=== PATIENT | female | born 1980 | race Caucasian/White ===

== ENCOUNTER 2024-11-26 20:32 | Inpatient (IN) | payer BC, SELFPAY ==
[2024-11-26] VITALS (10 sets, daily range): BP systolic 119–127; BP diastolic 79–96; PULSE 85–108; RESP 16–18; TEMP 36.4–36.7; O2SAT 98–100; BMI 22.6; BMI 22.9
--- NOTE | 2024-11-26 20:47 | ED.GENADULT ---
HPI - General Adult General Chief complaint: Diabetic Related Problem Stated complaint: Out of insulin Time Seen by Provider: 11/26/24 20:35 History of Present Illness HPI narrative: This 44-year-old female has type 1 diabetes and states that she has run out of insulin over the past couple days. She knows that she should have come in sooner but she has lots of anxiety about coming to see a doctor. She states that she watched her 22-year-old son in the hospital couple years ago and since then she has lots of anxiety in this regard. She states that she is urinating excessively and does report a history of diabetic ketoacidosis. She does arrive here with normal vital signs. A glucometer test was done on arrival which reported high for its value. Related Data Home Medications ?Medication ?Instructions ?Recorded ?Confirmed insulin aspart U-100 100 unit/mL 16 unit subcut 3XD 11/26/24 11/26/24 (3 mL) subcutaneous pen insulin glargine 100 unit/mL (3 30 unit subcut BID 11/26/24 11/26/24 mL) subcutaneous pen (Lantus Solostar U-100 Insulin) Allergies Allergy/AdvReac Type Severity Reaction Status Date / Time No Known Drug Allergies Allergy Verified 11/26/24 20:38 Review of Systems Status of ROS: Reports: 10 or more systems reviewed and unremarkable except as noted in History and below Narrative: Constitutional: No fevers, no weight gain or loss. Eyes: No discharge. No vision changes. HENT: No congestion, no sore throat, no ear pain. Cardiovascular: No chest pain, no palpitations. Respiratory: No shortness of breath, no wheezes, no cough. Gastrointestinal: No abdominal pain, no vomiting, no diarrhea. Genitourinary: No hematuria. She reports polyuria. Musculoskeletal: Normal range of motion. Skin: No rashes, no pruritis. Neurological: No dizziness, weakness, sensory change, speech change. Endo/Heme/Allergies: No bruising or bleeding. No polydipsia. Pysch: no suicidality, no anxiety, no insomnia. All other systems reviewed and are negative. [facility] Medical History (Updated 11/26/24 @ 22:08 by Wolfgang Greer MD) Insulin dependent diabetes mellitus Diabetes mellitus type 1 ?E10.9 - Type 1 diabetes mellitus without complications (ICD-10) Tobacco dependence ?F17.200 - Nicotine dependence, unspecified, uncomplicated (ICD-10) Sarcoidosis ?D86.9 - Sarcoidosis, unspecified (ICD-10) Hyperlipidemia ?E78.5 - Hyperlipidemia, unspecified (ICD-10) Neuropathy ?G62.9 - Polyneuropathy, unspecified (ICD-10) RLS (restless legs syndrome) ?G25.81 - Restless legs syndrome (ICD-10) PTSD (post-traumatic stress disorder) ?F43.10 - Post-traumatic stress disorder, unspecified (ICD-10) Panic disorder ?F41.0 - Panic disorder [episodic paroxysmal anxiety] (ICD-10) Eating disorder, unspecified ?F50.9 - Eating disorder, unspecified (ICD-10) Drug dependence ?F19.20 - Other psychoactive substance dependence, uncomplicated (ICD-10) Depression ?F32.A - Depression, unspecified (ICD-10) Borderline personality disorder ?F60.3 - Borderline personality disorder (ICD-10) Anxiety ?F41.9 - Anxiety disorder, unspecified (ICD-10) Alcohol use ?F10.90 - Alcohol use, unspecified, uncomplicated (ICD-10) ADD (attention deficit disorder) ?F98.8 - Other specified behavioral and emotional disorders with onset usually occurring in childhood and adolescence (ICD-10) Surgical History (Updated 11/26/24 @ 21:20 by Tommie Farfan RN) History of bilateral breast reduction surgery ?Z98.890 - Other specified postprocedural states (ICD-10) Social History Smoking Status: Never smoker Do you use any of these nicotine containing products: None Second hand tobacco smoke exposure: No How often do you have a drink containing alcohol: never How often do you have six or more drinks on one occasion: Never AUDIT-C Alcohol total score: 0 Non-prescribed substance use: denies use service: No Exam Narrative: Exam Narrative: Constitutional: Well-developed, well-nourished, no acute distress. HEENT: Normocephalic, atraumatic. Neck: Normal range of motion. Nontender. Supple. Heart: Regular. No murmurs. Normal rate. Intact distal pulses. Lungs: Clear to auscultation. No chest discomfort. No wheezes, rhonchi, or rales. Abdomen: Normal bowel sounds. Nontender. No rebound tenderness. Genitalia: Deferred. Back: No midline tenderness. Normal range of motion. Extremities: Normal range of motion. No injury. Skin: Intact. No rash. Warm. No erythema or pallor. Neurologic: No altered sensation. No weakness. Alert and oriented. Psychiatric: No suicidality. No anxiety or depression. No insomnia. Nursing notes and vitals signs are reviewed. Const: Vital Signs, click to edit/add: Vital Signs - 24 hr 11/26/24 20:36 11/26/24 21:11 Temperature 98.0 F Pulse Rate [Right Pulse Oximeter] 85 Respiratory Rate 18 Blood Pressure [Ri ght Upper Arm] 119/79 Pulse Oximetry 99 99 Oxygen Delivery Me thod Room Air Course Vital Signs Vital signs: Initial Vital Signs Temperature 98.0 F 11/26/24 20:36 Temperature Source Temporal Artery Scan 11/26/24 20:36 Pulse Rate 85 11/26/24 20:36 Respiratory Rate 18 11/26/24 20:36 Blood Pressure 119/79 11/26/24 20:36 Blood Pressure Mean 92 11/26/24 20:36 Blood Pressure Position Sitting 11/26/24 20:36 Pulse Oximetry 99 11/26/24 20:36 Oxygen Delivery Method Room Air 11/26/24 20:36 Vital Signs Temperature 98.0 F 11/26/24 20:36 Pulse Rate 85 11/26/24 20:36 Respiratory Rate 18 11/26/24 20:36 Blood Pressure 119/79 11/26/24 20:36 Pulse Oximetry 99 11/26/24 20:36 Oxygen Delivery Method Room Air 11/26/24 20:36 Temperature 98.0 F 11/26/24 20:36 Pulse Rate 85 11/26/24 20:36 Respiratory Rate 18 11/26/24 20:36 Blood Pressure 119/79 11/26/24 20:36 Pulse Oximetry 99 11/26/24 21:11 Oxygen Delivery Method Room Air 11/26/24 20:36 Medications Administered Medications: Generic Name Dose Route Start Last Admin Trade Name Freq PRN Reason Stop Dose Admin Sodium Chloride 1,000 mls @ 1,000 mls/hr 11/26/24 22:00 11/26/24 22:03 0.9 % Sodium Chloride 1000 Ml IV 11/26/24 22:59 1,000 mls/hr .Q1H JAVED Administration Insulin Human Regular 10 unit 11/26/24 21:57 11/26/24 22:02 Insulin Regular, Human 100 Unit/Ml Vial IVP 11/26/24 21:58 10 unit ONCE ONE Administration Lorazepam 0.5 mg 11/26/24 21:46 11/26/24 21:50 Lorazepam 2 Mg/Ml Inj IV 11/26/24 21:47 0.5 mg ONCE ONE Administration Discontinued Medications Generic Name Dose Route Start Last Admin Trade Name German PRN Reason Stop Dose Admin Sodium Chloride 1,000 mls @ 1,000 mls/hr 11/26/24 21:00 11/26/24 21:54 0.9 % Sodium Chloride 1000 Ml IV 11/26/24 21:59 Infused .Q1H JAVED Infusion Insulin Human Regular 10 unit 11/26/24 20:46 11/26/24 21:08 Insulin Regular, Human 100 Unit/Ml Vial IVP 11/26/24 20:47 10 unit ONCE ONE Administration Medical Decision Making MDM Narrative Medical decision making narrative: This patient has type 1 diabetes and states that she has not taken insulin for the past several days because she has run out. She arrives with some anxiety about coming to see doctors. An IV was established where she received a L of normal saline and 10 units of insulin initially. Labs are acquired and returned with some positive findings that are notable. Her glucose returns at 719 with CO2 at 14 and an anion gap. Also her sodium returns at 121. The patient received a 2 L of normal saline here along with 10 more units of regular insulin. She continues to be rather anxious so I did also administer Ativan 0.5 mg. I spoke with the hospitalist on-call who agrees to her admission into the hospital. Lab Data Labs: Lab Results 11/26/24 11/26/24 Range/Units 21:00 21:42 WBC 11.61 H (4.50-11.00) K/uL RBC 5.20 (4.00-5.20) m/uL Hgb 16.9 H (12.0-16.0) gm/dL Hct 46.8 (33.0-51.0) % MCV 90 (80-100) fL MCH 33 (26-34) pg MCHC 36 (32-36) gm/dL RDW Coeff of Risa 11.6 (11.5-15.5) % Plt Count 383 (140-440) K/uL Neut % (Auto) 71.3 (42.0-72.0) % Lymph % (Auto) 22.5 (20-44) % [place] % (Auto) 2.9 (0.0-11.0) % Eos % (Auto) 2.8 (0.0-7.0) % Baso % (Auto) 0.2 (0.0-3.0) % Neut # (Auto) 8.30 H (1.7-7.0) K/uL Lymph # (Auto) 2.60 (0.90-2.90) K/uL [place] # (Auto) 0.30 (0.00-0.90) K/UL Eos # (Auto) 0.30 (0.00-0.50) K/uL Baso # (Auto) 0.00 (0.00-0.30) K/uL Abs Immat Gran (auto) 0.00 (0.00-0.30) K/uL Imm/Tot Granulo (auto) 0.3 % Sodium 121 L* (135-149) mmol/L Potassium 4.5 (3.6-5.1) mmol/L Chloride 84 L (96-114) mmol/L Carbon Dioxide 14 L (20-32) mmol/L Anion Gap 23 H (7-15) mEq/L BUN 15 (5-24) mg/dL Creatinine 0.7 (0.5-1.5) mg/dL Estimated Creat Clear 98.01 Estimated GFR 111 ml/min Glucose 719 H* (60-115) mg/dL Calcium 9.5 (8.4-10.6) mg/dL Urine Color Light yellow (Yellow) Urine Appearance Slightly Cloudy A (Clear) Urine pH 5.5 (5.0-8.5) Ur Specific [place] 1.015 (1.000-1.030) Urine Protein Negative (Negative) Urine Glucose (UA) 2+ A (Negative) Urine Ketones 4+ A (Negative) Urine Blood Negative (Negative) Urine Nitrite Negative (Negative) Urine Bilirubin Negative (Negative) Urine Urobilinogen 0.2 (0.2-1.0) Ur Leukocyte Esterase Trace A (Negative) Discharge Plan Discharge Clinical Impression: Acute hyponatremia, Diabetic ketoacidosis Patient Disposition: Admitted As Observation Condition: Unchanged Prescriptions: No Action insulin aspart U-100 100 unit/mL (3 mL) insulin pen 16 unit subcut 3XD insulin glargine [Lantus Solostar U-100 Insulin] 100 unit/mL (3 mL) insulin pen 30 unit subcut BID
[2024-11-26] MEDS: INSULIN REGULAR, HUMAN 100 UNIT/ML VIAL 10 UNIT IVP ×2 (21:08→22:02)
[2024-11-26] MEDS: 0.9 % SODIUM CHLORIDE 1000 ml 1,000 ML IV ×2 (21:08→22:03)
[2024-11-26 21:11] LABS: Basophils Percent Auto 0.2 % (0.0-3.0); Eosinophils Percent Auto 2.8 % (0.0-7.0); Hematocrit* 46.8 % (33.0-51.0); Hemoglobin* 16.9 gm/dL (12.0-16.0); Immature Granulocytes Pct Auto 0.3 %; Lymphocytes Percent Auto 22.5 % (20-44); Mean Corpuscular HGB Conc 36 gm/dL (32-36); Mean Corpuscular Hemoglobin 33 pg (26-34); Mean Corpuscular Volume 90 fL (80-100); Monocytes Percent Auto 2.9 % (0.0-11.0); Neutrophils Percent Auto 71.3 % (42.0-72.0); Platelet Count* 383 K/uL (140-440); RDW Coefficient of Variation % 11.6 % (11.5-15.5); White Blood Count* 11.61 K/uL (4.50-11.00)
[2024-11-26 21:18] LABS: Slide Review Reflex No
[2024-11-26 21:22] LABS: Chloride* 84 mmol/L (96-114); Potassium* 4.5 mmol/L (3.6-5.1)
[2024-11-26 21:25] LABS: Anion Gap 23 mEq/L (7-15); Blood Urea Nitrogen* 15 mg/dL (5-24); Calcium* 9.5 mg/dL (8.4-10.6); Carbon Dioxide* 14 mmol/L (20-32); Creatinine* 0.7 mg/dL (0.5-1.5); Est. Creatinine Clearance* 98.01; Estimated Glomerular Filt Rate 111 ml/min
[2024-11-26 21:48] LABS: Glucose* 719 mg/dL (60-115); Sodium* 121 mmol/L (135-149)
[2024-11-26] MEDS: LORazepam 2 MG/ML inj 0.5 MG IV (21:50)
[2024-11-26 21:52] LABS: Appearance Urine Slightly Cloudy (Clear); Bilirubin Urine Negative (Negative); Blood Urine Negative (Negative); Color Urine Light yellow (Yellow); Glucose Urine 2+ (Negative); Ketones Urine 4+ (Negative); Leukocyte Esterase Urine Trace (Negative); Nitrite Urine Negative (Negative); Protein Urine Negative (Negative); Specific Gravity Urine 1.015 (1.000-1.030); Urobilinogen Urine 0.2 (0.2-1.0); pH Urine 5.5 (5.0-8.5)
[2024-11-26 22:12] LABS: Amorphous Sediment Urine Few; RBC Urine 0-2 (0-2); Squamous Epithelial Cell Urine Few (None-Few)
[2024-11-26 22:21] LABS: ABG PCO2 41 mmHG (35-45); Base Excess ABG 1.5 mmol/L (-3.0-3.0); HCO3 ABG 25 mmol/L (21-28); Oxygen Saturation ABG 98 % (92-100); TCO2 ABG 25 mmol/l (21-30)
[2024-11-26 22:41] LABS: Glucose, Point-of-Care* 502 mg/dl (60-115)
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
[2024-11-26 23:10] LABS: Glucose, Point-of-Care* 425 mg/dl (60-115)
[2024-11-26 23:54] LABS: HCO3 VBG 20 mmol/L (21-28); Lactate* 1.5 mmol/L (0.5-1.9); PCO2 VBG 39 mmHG (40-50); PO2 VBG 32.5 mmHG (25-47); pH VBG 7.311 (7.32-7.43)
[2024-11-27 00:09] LABS: Chloride* 96 mmol/L (96-114)
[2024-11-27 00:10] LABS: Potassium* 3.6 mmol/L (3.6-5.1); Sodium* 125 mmol/L (135-149)
[2024-11-27 00:12] LABS: Blood Urea Nitrogen* 12 mg/dL (5-24); Creatinine* 0.5 mg/dL (0.5-1.5); Est. Creatinine Clearance* 137.21; Estimated Glomerular Filt Rate 120 ml/min
[2024-11-27 00:13] LABS: Anion Gap 11 mEq/L (7-15); Calcium* 8.5 mg/dL (8.4-10.6); Carbon Dioxide* 18 mmol/L (20-32); Magnesium* 1.4 mg/dL (1.5-2.6); Phosphorus* 2.8 mg/dL (2.5-4.5)
[2024-11-27 00:30] VITALS: PULSE 96
[2024-11-27 00:32] LABS: Glucose* 449 mg/dL (60-115); HCG Quantitative* < 2.39 mIU/mL
[2024-11-27] MEDS: INSULIN INF 100 UNIT/100 ML 100 UNIT/100 ML BAG 6.5 UNIT IVPB (00:43)
--- NOTE | 2024-11-27 01:24 | PC.NURSE ---
Contacted Karl for order clarification on IVF. Hospitalist ordered NS@125 and D5NS@150 in conjunction with each other. [facility] provider, Carina Mccoy, verbally ordered to run the NS@125 until patient's BG is<200 and then change IVF to D5NS@150.
[2024-11-27] MEDS: 0.9 % SODIUM CHLORIDE 1000 ml 1,000 ML 125 ML IV (01:25)
[2024-11-27 02:26] VITALS: BP 111/90; PULSE 101; RESP 16; TEMP 36.6; O2SAT 96
[2024-11-27 02:26] LABS: Sodium* 130 mmol/L (135-149)
[2024-11-27] MEDS: NICOTINE 21 MG PATCH 1 PATCH TRANSDERMA (02:43)
[2024-11-27 03:57] LABS: HCO3 VBG 21 mmol/L (21-28); Lactate* 1.7 mmol/L (0.5-1.9); PCO2 VBG 38 mmHG (40-50); PO2 VBG 48.3 mmHG (25-47); pH VBG 7.364 (7.32-7.43)
[2024-11-27 04:13] LABS: Chloride* 103 mmol/L (96-114); Potassium* 3.6 mmol/L (3.6-5.1); Sodium* 132 mmol/L (135-149)
[2024-11-27 04:16] LABS: Anion Gap 10 mEq/L (7-15); Blood Urea Nitrogen* 12 mg/dL (5-24); Calcium* 8.2 mg/dL (8.4-10.6); Carbon Dioxide* 19 mmol/L (20-32); Creatinine* 0.5 mg/dL (0.5-1.5); Est. Creatinine Clearance* 137.21; Estimated Glomerular Filt Rate 120 ml/min; Glucose* 256 mg/dL (60-115)
[2024-11-27] MEDS: 5 % DEXTROSE/0.9% SOD CHLORIDE 1,000 ML 150 ML IV (05:41)
[2024-11-27 06:54] LABS: Sodium* 132 mmol/L (135-149)
[2024-11-27 07:18] VITALS: PULSE 86
[2024-11-27 08:00] VITALS: BP 104/71; PULSE 89; RESP 18; TEMP 36.3; O2SAT 98
[2024-11-27] MEDS: SODIUM CHLORIDE 0.9 % (FLUSH) 10 ML SYRINGE 5 ML IVF (08:07)
[2024-11-27 08:12] LABS: HCO3 VBG 24 mmol/L (21-28); Lactate* 1.1 mmol/L (0.5-1.9); PCO2 VBG 43 mmHG (40-50); PO2 VBG 35.8 mmHG (25-47); pH VBG 7.346 (7.32-7.43)
[2024-11-27 08:31] LABS: Chloride* 100 mmol/L (96-114); Potassium* 4.3 mmol/L (3.6-5.1); Sodium* 128 mmol/L (135-149)
[2024-11-27 08:34] LABS: Blood Urea Nitrogen* 13 mg/dL (5-24); Calcium* 8.1 mg/dL (8.4-10.6); Carbon Dioxide* 23 mmol/L (20-32); Creatinine* 0.5 mg/dL (0.5-1.5); Est. Creatinine Clearance* 137.21; Estimated Glomerular Filt Rate 120 ml/min; Glucose* 307 mg/dL (60-115)
[2024-11-27 08:36] LABS: Anion Gap 5 mEq/L (7-15)
[2024-11-27] MEDS: INSULIN GLARGINE,HUM.REC.ANLOG 100 UNIT/ML INSULN.PEN 30 UNIT SUBCUT (09:15)
[2024-11-27] MEDS: INSULIN ASPART 100 UNIT/ML SUBCUT (09:15)
[2024-11-27 10:29] LABS: Sodium* 129 mmol/L (135-149)
--- NOTE | 2024-11-27 11:30 | PC.NURSE ---
Pt. seen by Dr. Hunt at approximately 1115. Plan was for pt. to be discharged, however pt. was unwilling to wait for discharge paperwork and chose to sign out against medical advice.
--- NOTE | 2024-11-27 11:34 | PM.DS1 ---
DS: Providers Provider Date Seen: 11/27/24 Date of admission: 11/26/24 23:42 Primary care physician: Not a Local Provider Admitting Clinician: Dina Lezama MD Consults: 11/26/24 23:42 Consult to Territory Service Representative [CONS] Urgent Comment: Reason for Consult:: Social Service Consult 11/27/24 01:10 Consult to Territory Service Representative [CONS] Routine Comment: Reason for Consult:: Social Service Consult Attending Physician on discharge: Adalgisa Hunt MD DS: Diagnosis Discharge Diagnosis (1) Diabetic ketoacidosis: Status: Acute Problem details: vs HHS. High risk in becoming acidotic Glucose 719, serum bicarb 14, urine ketones 4+, anion gap 23, ABG pH 7.40 In ED, received 2 L NS, 10 units insulin x2. -> POC glucose 502 -> 425 Potassium 4.5 EKG, magnesium, phosphorous ordered Admit to CCU, DKA protocol, NS maintenance fluids, insulin drip, serial labs (2) Acute hyponatremia: Status: Acute Problem details: In setting of recent polydipsia, hyperglycemia, poorly controlled diabetes mellitus Sodium 121 in the ED Corrected sodium for hyperglycemia is 131 Received 2 L NS in ED Recheck sodium upon arrival to floor and q.2 hours (3) Diabetes mellitus type 2 with complications, uncontrolled: Status: Acute Problem details: Per older EMR, type 2. Other records are indicating type 1 Poorly managed, noncompliant with insulin, unable to afford Usual home dose Lantus is 30 units b.i.d., aspart 16 units t.i.d. with meals plus sliding scale Last dose insulin was Saturday or Saturday client services account manager consult to assist with medication needs Will need to establish with PCP following discharge for ongoing management (4) Depression: Status: Acute Problem details: With additional diagnoses of ADD, anxiety, borderline personality disorder, panic disorder, PTSD, eating disorder, dependence, alcohol dependence Poorly managed Not currently on any medications DS: Summary Hospital Course Hospital Course: Pt presented w DKA and was treated w/ IVF, insulin drip and improved. Able to tolerate diet. Counseled pt on the need to comply w/ meds. Pt declined Mg replacement at hospital and asked for PO Mg at home. F/up w/ pcp. Time Spent with Patient Time attestation: Total time spent providing and/or coordinating discharge services: Exam Narrative: Exam Narrative: Physical exam GENERAL: Comfortable, no acute distress. HEAD AND NECK: Atraumatic, normocephalic CARDIOVASCULAR: RRR. Normal S1, S2. RESPIRATORY: Clear to auscultation B/L. Good air entry B/L. GASTROINTESTINAL: Not distended, not tender to palpation. NEUROLOGY: Alert, awake, oriented X 3. Normal speech. PSYCH: Anxious. Const: Vital Signs, click to edit/add: Vital Signs - 24 hr 11/26/24 20:36 11/26/24 21:11 11/26/24 21:31 Temperature 98.0 F Pulse Rate 108 H Pulse Rate [Pulse Oximeter] Pulse Rate [Right Pulse Oximeter] 85 Respiratory Rate 18 18 Blood Pressure 127/82 Blood Pressure [Le ft Arm] Blood Pressure [Ri ght Upper Arm] 119/79 Pulse Oximetry 99 99 [facility] 11/26/24 21:46 11/26/24 22:02 11/26/24 22:32 Temperature 98 F Pulse Rate 108 H 99 100 Pulse Rate [Pulse Oximeter] Pulse Rate [Right Pulse Oximeter] Respiratory Rate 18 18 18 Blood Pressure 123/96 H 120/81 123/80 Blood Pressure [Le ft Arm] Blood Pressure [Ri ght Upper Arm] Pulse Oximetry 100 100 [facility] 11/26/24 23:01 11/26/24 23:32 11/26/24 23:52 Temperature 97.6 F Pulse Rate 99 98 Pulse Rate [Pulse Oximeter] 96 Pulse Rate [Right Pulse Oximeter] Respiratory Rate 18 18 16 Blood Pressure 122/84 120/83 Blood Pressure [Le ft Arm] Blood Pressure [Ri ght Upper Arm] Pulse Oximetry 99 [facility] 11/26/24 23:53 11/27/24 00:30 11/27/24 02:26 Temperature 98 F 97.8 F Pulse Rate 96 Pulse Rate [Pulse Oximeter] 101 H Pulse Rate [Right Pulse Oximeter] 85 Respiratory Rate 18 16 Blood Pressure Blood Pressure [Le ft Arm] 111/90 H Blood Pressure [Ri ght Upper Arm] 119/79 Pulse Oximetry [facility] 11/27/24 07:18 11/27/24 08:00 Temperature 97.4 F L Pulse Rate 86 Pulse Rate [Pulse Oximeter] 89 Pulse Rate [Right Pulse Oximeter] Respiratory Rate 18 Blood Pressure Blood Pressure [Le ft Arm] 104/71 Blood Pressure [Ri ght Upper Arm] Pulse Oximetry 98 Oxygen Delivery Me thod Room Air DS: Data Data Completed and Pending Labs on day of discharge: Labs from last 24 hours 11/27/24 11/27/24 11/27/24 10:12 08:06 06:04 WBC RBC Hgb Hct MCV MCH MCHC RDW Coeff of Risa Plt Count Neut % (Auto) Lymph % (Auto) [place] % (Auto) Eos % (Auto) Baso % (Auto) Neut # (Auto) Lymph # (Auto) [place] # (Auto) Eos # (Auto) Baso # (Auto) Abs Immat Gran (auto) Imm/Tot Granulo (auto) ABG pH ABG pCO2 ABG pO2 ABG HCO3 ABG Total CO2 ABG O2 Saturation ABG Base Excess VBG pH 7.346 VBG pCO2 43 VBG pO2 35.8 VBG HCO3 24 Sodium 129 L 128 L 132 L Potassium 4.3 Chloride 100 Carbon Dioxide 23 Anion Gap 5 L BUN 13 Creatinine 0.5 Estimated Creat Clear 137.21 Estimated GFR 120 Glucose 307 H Lactate 1.1 Calcium 8.1 L Phosphorus Magnesium HCG, Quant Urine Color Urine Appearance Urine pH Ur Specific [place] Urine Protein Urine Glucose (UA) Urine Ketones Urine Blood Urine Nitrite Urine Bilirubin Urine Urobilinogen Ur Leukocyte Esterase Urine RBC Urine WBC Ur Squamous Epith Cells Amorphous Sediment Urine Bacteria POC Glucose 11/27/24 11/27/24 11/26/24 03:50 02:05 23:50 WBC RBC Hgb Hct MCV MCH MCHC RDW Coeff of Risa Plt Count Neut % (Auto) Lymph % (Auto) [place] % (Auto) Eos % (Auto) Baso % (Auto) Neut # (Auto) Lymph # (Auto) [place] # (Auto) Eos # (Auto) Baso # (Auto) Abs Immat Gran (auto) Imm/Tot Granulo (auto) ABG pH ABG pCO2 ABG pO2 ABG HCO3 ABG Total CO2 ABG O2 Saturation ABG Base Excess VBG pH 7.364 7.311 L VBG pCO2 38 L 39 L VBG pO2 48.3 H 32.5 VBG HCO3 21 20 L Sodium 132 L 130 L 125 L Potassium 3.6 3.6 Chloride 103 96 Carbon Dioxide 19 L 18 L Anion Gap 10 11 BUN 12 12 Creatinine 0.5 0.5 Estimated Creat Clear 137.21 137.21 Estimated GFR 120 120 Glucose 256 H 449 H* Lactate 1.7 1.5 Calcium 8.2 L 8.5 Phosphorus 2.8 Magnesium 1.4 L HCG, Quant < 2.39 Urine Color Urine Appearance Urine pH Ur Specific [place] Urine Protein Urine Glucose (UA) Urine Ketones Urine Blood Urine Nitrite Urine Bilirubin Urine Urobilinogen Ur Leukocyte Esterase Urine RBC Urine WBC Ur Squamous Epith Cells Amorphous Sediment Urine Bacteria POC Glucose 11/26/24 11/26/24 11/26/24 23:10 22:40 22:10 WBC RBC Hgb Hct MCV MCH MCHC RDW Coeff of Risa Plt Count Neut % (Auto) Lymph % (Auto) [place] % (Auto) Eos % (Auto) Baso % (Auto) Neut # (Auto) Lymph # (Auto) [place] # (Auto) Eos # (Auto) Baso # (Auto) Abs Immat Gran (auto) Imm/Tot Granulo (auto) ABG pH 7.40 ABG pCO2 41 ABG pO2 95.0 ABG HCO3 25 ABG Total CO2 25 ABG O2 Saturation 98 ABG Base Excess 1.5 VBG pH VBG pCO2 VBG pO2 VBG HCO3 Sodium Potassium Chloride Carbon Dioxide Anion Gap BUN Creatinine Estimated Creat Clear Estimated GFR Glucose Lactate Calcium Phosphorus Magnesium HCG, Quant Urine Color Urine Appearance Urine pH Ur Specific [place] Urine Protein Urine Glucose (UA) Urine Ketones Urine Blood Urine Nitrite Urine Bilirubin Urine Urobilinogen Ur Leukocyte Esterase Urine RBC Urine WBC Ur Squamous Epith Cells Amorphous Sediment Urine Bacteria POC Glucose 425 H* 502 H* 11/26/24 11/26/24 11/26/24 21:42 21:00 20:41 WBC 11.61 H RBC 5.20 Hgb 16.9 H Hct 46.8 MCV 90 MCH 33 MCHC 36 RDW Coeff of Risa 11.6 Plt Count 383 Neut % (Auto) 71.3 Lymph % (Auto) 22.5 [place] % (Auto) 2.9 Eos % (Auto) 2.8 Baso % (Auto) 0.2 Neut # (Auto) 8.30 H Lymph # (Auto) 2.60 [place] # (Auto) 0.30 Eos # (Auto) 0.30 Baso # (Auto) 0.00 Abs Immat Gran (auto) 0.00 Imm/Tot Granulo (auto) 0.3 ABG pH ABG pCO2 ABG pO2 ABG HCO3 ABG Total CO2 ABG O2 Saturation ABG Base Excess VBG pH VBG pCO2 VBG pO2 VBG HCO3 Sodium 121 L* Potassium 4.5 Chloride 84 L Carbon Dioxide 14 L Anion Gap 23 H BUN 15 Creatinine 0.7 Estimated Creat Clear 98.01 Estimated GFR 111 Glucose 719 H* Lactate Calcium 9.5 Phosphorus Magnesium HCG, Quant Urine Color Light yellow Urine Appearance Slightly Cloudy A Urine pH 5.5 Ur Specific [place] 1.015 Urine Protein Negative Urine Glucose (UA) 2+ A Urine Ketones 4+ A Urine Blood Negative Urine Nitrite Negative Urine Bilirubin Negative Urine Urobilinogen 0.2 Ur Leukocyte Esterase Trace A Urine RBC 0-2 Urine WBC 2-5 Ur Squamous Epith Cells Few Amorphous Sediment Few A Urine Bacteria None POC Glucose Pending Preliminary micro results at discharge 11/26/24 21:42 Urine Culture - Preliminary Urine,Clean Catch Culture in Progress Discharge Plan Discharge Disposition: Left Against Medical Advice Date of Admission: 11/26/24 23:42 Attending Provider on Discharge: Adalgisa Hunt Primary Care Provider: Provider,Not a Local Condition: Unchanged Discharge Medications: New magnesium oxide 400 mg (241.3 mg magnesium) tablet 400 mg PO BID 30 Days Qty: 60 0RF Continued insulin aspart U-100 100 unit/mL (3 mL) insulin pen 16 unit subcut TIDWM 30 Days Qty: 45 1RF insulin glargine [Lantus Solostar U-100 Insulin] 100 unit/mL (3 mL) insulin pen 30 unit subcut BID 30 Days Qty: 54 1RF Discharge Orders: Discharge Order (Routine); Ordered 11/27/24 Ordered By: Adalgisa Hunt AMAidan Form Signed: Yes
== END 2024-11-27 11:30 | disposition left against medical advice (07) | DRG 420 ==
LOC: ED 22:20 → MEDSURG 11-27 10:29
PROVIDERS: Admitting Provider Physician Assistant; Emergency Provider Emergency Medicine Emergency Medical Services; Visit Provider Family Medicine
DX: E11.10 Type 2 diabetes mellitus with ketoacidosis without coma (principal); Z79.4 Long term (current) use of insulin; Z72.0 Tobacco use; E87.1 Hypo-osmolality and hyponatremia; F32.A Depression, unspecified; E11.65 Type 2 diabetes mellitus with hyperglycemia; Z53.29 Procedure and treatment not carried out because of patient's decision for other reasons
CPT/HCPCS: 36415; 36600; 80048; 81001; 82803; 82947; 82962; 83605; 83735; 84100; 84295; 84702; 85025; 87040; 87086; 93005; 94761; 99284; 99285; J1815; J2060; J3590; J7030; J7042; S4990

== ENCOUNTER 2025-02-05 09:01 | Emergency (ER) | payer BC, SELFPAY ==
--- OUTSIDE RECORDS SUMMARY | 2009-02-18 17:37 | XMS_ITS | Encounter Summary ---
Author Organization [place] Address [address] [facility] [place] [address] Care Team Providers Care Incident Engineer Name Role Phone Sandeep Clancy MD Primary Care Provider [phone] Elly Araya MD Unavailable [phone] Encounter Details Date Type Department Care Team (Late st Contact Info) Description 02/18/2009 5:37 PM CDT [facility] in [facility] [address] [place] [phone] Rafat Helton MD [facility] [address] [place] [address] [address] [place] [address] Social History Tobacco Use Types Packs/Day Years Used Date Smoking Tobacco: Every Day Cigarettes Alcohol Use Standard Drinks/Week Comments Yes 0 (1 standard drink = 0.6 oz pur e alcohol) has been drinking daily Comments No Sex and Gender Information Value Date Recorded Sex Assigned at Not on file 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
--- OUTSIDE RECORDS SUMMARY | 2010-04-04 19:04 | XMS_ITS | Encounter Summary ---
Author Organization [place] Address [address] [facility] [place] [address] Care Team Providers Care River [place]ing Supervisor Name Role Phone Sandeep Clancy MD Primary Care Provider [phone] Elly Araya MD Unavailable Encounter Details Date Type Department Care Team (Late st Contact Info) Description 04/04/2010 7:04 PM CDT [facility] in 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
--- OUTSIDE RECORDS SUMMARY | 2012-06-01 19:00 | XMS_ITS | Continuity of Care Document ---
Author Organization [facility] Address [address] [address] [place] [address] Phone Care Team Providers Care Elevator Constructor Name Role Phone Monica Live MD Unavailable Unavailable Procedures Procedure Date Init Hosp[facility] 2 Advance Directives Directive Yes / No Effective Date File Name No Information Encounters Encounter Description Practice Location Reason(s) For Visit Diagnoses Date Provider Providers Copied on Encounter Init Hosp[facility] E[facility] Sever[facility], [address] [address], [place], [place], [id number], [place] tel:[phone] [facility] No Information 2 Maria T Escobedo. [address] [facility], [facility] [address], [place], [place], [id number] , [place]. tel:[phone] Family History Family Member Type Diagnosis Age At Onset No Information Payers Payer name Insurance type Covered libertarian ID Authoriza tion(s) No Information Social History Type Description Quantity Date Captured Comments Sex Female Smoking Status No Information Chief Complaint And Reason For Visit No Information Reason For Referral Reason For Referral No Information History Of Present Illness Encounter Date Complaint History Of Prese nt Illness No Information Functional Status Date Functional Assessmen t No Information Instructions Date Instruction Additional Infor mation No Information Assessments Type Assessment Date No Information Patient Care Teams Name Effective Dates (start - stop) Status Members No Information
--- OUTSIDE RECORDS SUMMARY | 2012-06-01 19:00 | XMS_ITS | Continuity of Care Document ---
Author Organization [facility] Address [address] [address] [place] [address] Phone Care Team Providers Care Backup Administrative Coordinator Name Role Phone Monica Live MD Unavailable Unavailable Procedures Procedure Date Init Hosp-da E&m Low Severity 2 Advance Directives Directive Yes / No Effective Date File Name No Information Encounters Encounter Description Practice Location Reason(s) For Visit Diagnoses Date Provider Providers Copied on Encounter Init Hosp-da E&m [facility] Sever[facility], [address] [address], [place], [place], [id number], [place] tel:[phone] [facility] No Information 2 Maria T Escobedo. [address] [facility], [facility] [address], [place], [place], [id number] , [place]. tel:[phone] Family History Family Member Type Diagnosis Age At Onset No Information Payers Payer name Insurance type Covered alliance party ID Authoriza tion(s) No Information Social [...]
--- OUTSIDE RECORDS SUMMARY | 2025-01-31 18:16 | XMS_ITS | Encounter Summary ---
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 Use subcutaneous insulin syringe to administer if ordered for subcutaneous route. 190 (Given - Provid er: Ivy Nogueira R.N.) insulin regular injection 10 Units (COMPLETED) 10 Units, intravenous, Once, On 01/31/25 at 1934, For 1 dose, Use subcutaneous insulin syringe to administer if ordered for subcutaneous route. 1937 (Given - Provid er: Ivy Nogueira R.N. - Comment: Verified [id number]) NaCl 0.9 % bolus 1,000 mL (COMPLETED) 1,000 mL, intravenous, at 1,000 mL/hr, Administer over 1 Hours, Once, On 01/31/25 at 1840, For 1 dose 190 (New Bag - Prov ider: Ivy Nogueira R.N.)193 (Stopped - Provider: Ivy Nogueira R.N.) NaCl 0.9 % bolus 1,000 mL (COMPLETED) 1,000 mL, intravenous, at 1,000 mL/hr, Administer over 1 Hours, Once, On 01/31/25 at 1840, For 1 dose 184 (Pavan Bag - Prov ider: Ivy Nogueira R.N.)190 (Stopped - Provider: Ivy Nogueira R.N.) NaCl 0.9 % bolus 1,000 mL (COMPLETED) 1,000 mL, intravenous, at 1,000 mL/hr, Administer over 1 Hours, Once, On 01/31/25 at 2011, For 1 dose 2013 (New Bag - Prov ider: Diana Bishop R.NJaden)210 (Stopped - Provider: Isra Clayton R.N.) PRN Medication Order 01/29/2025 01/30/2025 01/31/2025 sodium chloride 0.9 % injection 2-10 mL(Linked Group 1) 2-10 mL, intravenous, As needed, line care, Starting on 01/31/25 at 1839 Linked Groups Order Group 1: Place peripheral IV: No upper extremity site restrictions (COMPLETED) Upper extremity site restriction: No upper extremity site restrictions, Quantity of PIVs requested: One, STAT, Once, On 01/31/25 at 1840, For 1 occurrence And sodium chloride 0.9 % injection 2-10 mLJump to med 2-10 mL, intravenous, As needed, line care, Starting on 01/31/25 at 1839 documented in this encounter Additional Health Concerns Assessment Noted Time PHQ-9 Depression Total Score: 20 022 8:40 AM CDT documented as of this encounter Care Teams Psychiatric Therapist Relationship Specialty Start Date End Date Elsewhere, Pcp PCP - General Internal Medicine 02/06/22 documented as of this encounter
--- OUTSIDE RECORDS SUMMARY | 2025-02-05 09:05 | XMS_ITS | Encounter Summary ---
Author Organization [place] Address [address] [facility]. [address] Care Team Providers Care Wood Finisher Name Role Phone Sandeep Clancy MD Primary Care Provider [phone] Rafat Helton MD Primary Care Provider [phone] Frw, None Primary Care Provider Unavailabl e Elly Araya MD Unavailable [phone] Misael Zuleta MD Unavailable Unavailable System, Provider Not In Primary Care Provider Un available Encounter Details Date Type Department Care Team (Late st Contact Info) Description 07/18/2005 [facility] in [place] Inpatient Dept [address] [place] [address] Frw, Inpatient Provider Social History Tobacco Use Types Packs/Day Years Used Date Smoking Tobacco: Every Day Cigarettes Alcohol Use Standard Drinks/Week Comments Yes 0 (1 standard drink = 0.6 oz pur e alcohol) has been drinking daily Comments No Sex and Gender Information Value Date Recorded Sex Assigned at Not on file Legal Sex Female 4:14 AM APPLICATIONS SUPPORT LEAD Gender Identity Not on file Sexual Orientation Not on file Occupation Industry Job Start Date Job End Date homemaker Not on file Not on file Not on file documented as of this encounter Progress Notes * Elly Araya MD - 07/18/2005 9:00 PM CSTPROCEDURE/OPERATIVE REPORT DATE OF PROCEDURE: 07/19/2005 PREOPERATIVE DIAGNOSIS: Intrauterine at 38 and 3/7th weeks, in active labor. POSTOPERATIVE DIAGNOSIS: 1. Intrauterine at 38 3/7th weeks in active labor. 2. Delivery of a viable male, 6 pounds 9 ounces, Apgars of 8 and 9. PRINCIPLE PROCEDURE: NORMAL SPONTANEOUS VAGINAL DELIVERY. SURGEON: Elly Araya M.D. ANESTHESIA: Epidural and local Mepivacaine. ESTIMATED BLOOD LOSS: 275. COMPLICATIONS: None. DRAINS: None. FINDINGS: Include intact placenta with three-vessel cord. Midline episiotomy. No lacerations of the vagina, cervix or periurethral. TISSUES: Include infant placenta. HISTORY: Dana is a 25 year old, G3, P1, at 38 and 3/7ths weeks. She presented in active labor. She had artificial rupture of membranes at 5 centimeter after an epidural was placed. She then went onto to complete and pushed for less than half an hour. Throughout the entire first and second stage of labor, no complications. PROCEDURE: Infant delivered OA (occipitoanterior) over a midline episiotomy after approximately 5 cc of 1% Mepivacaine was injected. Mouth and nose were bulb suctioned. Nuchal cord x one was noted and reduced. Shoulders and body delivered easily thereafter. Infant was placed on maternal abdomen and cord was clamped and cut. A section of cord was set aside for possible blood gases and cord blood sample was obtained. Placenta then delivered with minimal traction and uterine massage. On inspection it was intact with three-vessel cord. On further inspection there was no periurethral, cervical or vaginal lacerations, no extension of the midline episiotomy. Approximately 8 cc of 1% Mepivacaine was injected and the episiotomy was repaired in the usual fashion with 2-0 and 3-0 chromic. At the end of the procedure both mother and were stable, fundus was firm and flow was minimal. Sponge, needle and instrument counts were correct prior to and after the delivery. Elly MADRIGAL/jordan cc: ICATIONS SUPPORT LEAD documented in this encounter Plan of Treatment Not on file documented as of this encounter Visit Diagnoses Not on filedocumented in this encounter Care Teams Wood Finisher Relationship Specialty Start Date End Date Sandeep Clancy MD XX NO INFO FOUND XX [place] [id number] PCP - General 08/20/07 07/01/17 Rafat Helton MD XX NO INFO FOUND XX [place] [address] PCP - General 03/25/06 08/19/07 Frw, None PCP - General 09/17/00 03/24/06 Elly Araya MD XXX [place] [address] PCP - Obstetrics/Gynecology 07/26/05 1 08/29/14 Misael Zuleta MD PCP - Obstetrics/Gynecology 09/17/0006/28 System, Provider Not In PCP - General Clinic 07/02/17 documented as of this encounter
--- OUTSIDE RECORDS SUMMARY | 2025-02-05 09:05 | XMS_ITS | Encounter Summary ---
Author Organization [place] Address [address] [facility] [place] [address] Care Team Providers Care Timber Robber Name Role Phone JakobepSandeep rico MD Primary Care Provider [phone] Rafat Helton MD Primary Care Provider [phone] Frw, None Primary Care Provider Unavailabl e Elly Araya MD Unavailable [phone] Misael Zuleta MD Unavailable Unavailable System, Provider Not In Primary Care Provider Un available Encounter Details Date Type Department Care Team (Late st Contact Info) Description 07/19/2005 [facility] in [place] [employer] [address] [place] [address] Misael Zuleta MD Social History Tobacco Use Types Packs/Day Years Used Date Smoking Tobacco: Every Day Cigarettes Alcohol Use Standard Drinks/Week Comments Yes 0 (1 standard drink = 0.6 oz pur e alcohol) has been drinking daily Comments No Sex and Gender Information Value Date Recorded Sex Assigned at Not on file Legal Sex Female 4:14 AM MANAGER CAREER Gender Identity Not on file Sexual Orientation Not on file Occupation Industry Job Start Date Job End Date homemaker Not on file Not on file Not on file documented as of this encounter Progress Notes * Misael Zuleta - 07/19/2005 7:23 AM CST Dana is a 25 year old white female, SAB1, who is admitted in active labor. She has SARAH of 07/30/05 and is 38w 3d gest. She is having contractions every 2-4 min. Cx was 2 cm on first evaluation and changed to 3 cm. She was admitted and epidural placed. She is now 5 cm. FHT are normal. BOWI. She has a cold. PAST MEDICAL HISTORY: Previous Medical History: None on file PAST SURGICAL HISTORY: Review of patient's past surgical history indicates: REMOVAL OF TONSILS,<14 Y/O 11/26/86 Comment: with adenoidectomy CREATE EARDRUM OPENING,GEN ANESTH 11/26/86 RW OTHER (ABSTRACTED) Comment: Breast reduction RW OTHER (ABSTRACTED) 2001 Comment: wisdom teeth CURRENT MEDICATIONS: Current outpatient prescriptions: ADDERALL 5 MG OR TABS one tablet TID VITAMIN OR one tablet daily ALLERGIES: No Known Allergies Family HX: Family History: Diabetes Father Stroke Maternal Grandfather Eye Maternal Grandfather Comment: Macular degeneration Cancer Maternal Grandmother Gynecology Mother Comment: endometreosis Hypertension Father Heart Brother Comment: murmur REVIEW OF SYSTEMS: Otherwise negative unless specified in HPI. NEUROLOGIC: negative EYES: negative ENT: negative GI: negative BREAST: negative : negative VALUATION CONSULTANT: CV: negative PULMONARY: as above MUSCULOSKELETAL: negative PSYCH: negative SKIN: negative Soc Hx: Social History Marital Status: Single Spouse Name: Bony Ha Years of Education: N/A Number of Children: 1 Occupational History homemaker Social History Main Topics Tobacco Use: Yes 0.5 Packs/Day Comment: pt trying to quit 12/15/04 less than 5 per day Alcohol Use: No Comment: not with Drug Use: Not on file Sexually Active: Yes Comment: Other Topics Concern BLOOD TRANSFUSIONS No CAFFEINE Yes Comment: 6 sodas q day, down to 1-2 q day with . SLEEP CONCERN No STRESS CONCERN Yes WEIGHT CONCERN No DIET No EXERCISE No SEAT BELT Yes SELF EXAMS No Social History Narrative None on file PHYSICAL EXAM: This is a well-developed, well-nourished female in no apparent distress, with epidural in place. VITALS: BP 98/70, p 84, FHT 140's Neruo: grossly intact EYES: JEFF, EOM's intact. ENT: oral cavity normal, no neck nodes, thyroid not enlarged, neck supple Lung CTA, bilat wheezing, easy respairations Heart: RRR, S1 and S2 clear, no murmur Back: no spinal or CVA tenderness ABD: gravid uterus Pelvic: Cx 5 cm, 100%, BOWI, 0 station EXT: no edema, Skin: no lesions of concern Assessment: active labor at 38 wk resp wheezes Plan: anticipate vaginal delivery use inhaler GER CAREER documented in this encounter Plan of Treatment Not on file documented as of this encounter Visit Diagnoses Not on filedocumented in this encounter Care Teams Timber Robber Relationship Specialty Start Date End Date Sandeep Clancy MD XX NO INFO FOUND XX [place] [id number] PCP - General 08/20/07 07/01/17 Rafat Helton MD XX NO INFO FOUND XX [place] [address] PCP - General 03/25/06 08/19/07 Frw, None PCP - General 09/17/00 03/24/06 El[place]ray[place] [address] PCP - Obstetrics/Gynecology 07/26/05 1 08/29/14 Misael Zuleta MD PCP - Obstetrics/Gynecology 09/17/0006/28 System, Provider Not In PCP - General Clinic 07/02/17 documented as of this encounter
--- OUTSIDE RECORDS SUMMARY | 2025-02-05 09:05 | XMS_ITS | Clinical Summary ---
Author Organization [place] Address [address] [facility] [place] [address] Care Team Providers Care Roof Promenade Tile Setter Name Role Phone System, Provider Not In Primary Care Provider Un available Allergies Active Allergy Reactions Criticality Noted Date Comments Bupropion 07/02/2017 Trifluoperazine 07/02/2017 Trazodone 07/02/2017 Medications buPROPion (WELLBUTRIN XL) 150 MG 24 hr tabletIndicati ons:Obsessive- compulsive disorders,Atte ntion deficit disorder with hyperactivity( 314.01) Take 1 tablet by mouth every morning. 30 tablet 0 0 Active GLIPIZIDE PO Unable to recall dose Active PARoxetine HCl (PAXIL PO) Take 50 mg by mouth daily Active Amphetamine-De xtroamphetamin e (ADDERALL PO) Take 30 mg by mouth 2 times daily Active albuterol (PROAIR HFA/PROVENTIL HFA/VENTOLIN HFA) 108 (90 Base) MCG/ACT inhaler Inhale 2 puffs into the lungs every 6 hours as needed for shortness of breath, wheezing or cough. 18 g 4 Active insulin glargine (LANTUS PEN) 100 UNIT/ML pen Inject 30 Units subcutaneously 2 times daily for 25 days. 15 mL 4 Active Active Problems Problem Noted Date Diagnosed Date Generalized anxiety disorder 07/11/2024 Hypercalcemia 03/10/2022 Hypoalbuminemia 03/10/2022 Hypokalemia 03/10/2022 Diabetic ketoacidosis associ ated with type 1 diabetes mellitus 01/21/2022 Trigeminal neuralgia 11/20/2021 Delusions of parasitosis 08/23/2021 Neuropathy 08/23/2021 Noncompliance with medication regimen 08/23/2021 Surgical absence of teeth 08/16/2021 Corneal ulcer 07/01/2020 Abnormal liver function test 01/28/2019 Hypomagnesemia 10/06/2018 Hyperlipidemia 09/15/2018 Mild intermittent asthma 06/17/2018 History of suicide attempt 03/17/2018 Overview (07/11/2024): Aug [address] [place]. February 2018 OD Gabapentin. Homelessness 03/17/2018 Personal history of suicidal behavior 03/17/2018 Overview (07/11/2024): Aug [address] [place]. February 2018 OD Gabapentin. Aug 2017 [place] river. February 2018 OD Gabapentin. 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 Provider to review Attention deficit hyperactivity disorder (ADHD) 03/25/2006 Overview (05/26/2015): Problem list name updated by automated process. 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 Provider to review and confirm. Immunizations Immunization Administration Dates Next Due Historical DTP/aP 03/18/1984,1982,08/09/19 82,1982 MMR (MMRII) 10/19/1983 Mantoux Tuberculin Skin Test 04/18/1983 OPV, trivalent, live 03/18/1984,1982,08/09,1982 Family History Medical History Relation Comments Heart Disease Brother 2 murmur Psychotic Disorder Brother 2 attention def icit disorder Diabetes Father Hypertension Father Psychotic Disorder Father attention def icit disorder Cerebrovascular Disease Maternal Grandfather Eye Disorder Maternal Grandfather Macular deg eneration Cancer Maternal Grandmother Gynecology Mother endometreosis Relation Status Comments Brother 1 Alive x2 Brother 2 Father Alive Maternal Grandfather Maternal Grandmother Mother Alive Social History Tobacco Use Types Packs/Day Years Used Date Smoking Tobacco: Every Day Cigarettes Alcohol Use Standard Drinks/Week Comments Yes 0 (1 standard drink = 0.6 oz pur e alcohol) has been drinking daily Adolescent Education Answer Date Record ed Getting School Help Needed Not on file 06/02 Comments No Sex and Gender Information Value Date Recorded Sex Assigned at Not on file Legal Sex Female 4:14 AM PROJECTS MANAGER Gender Identity Not on file Sexual Orientation Not on file Occupation Industry Job Start Date Job End Date homemaker Not on file Not on file Not on file Last Filed Vital Signs Vital Sign Reading Time Taken Comments Blood Pressure 128/108 07/11/2024 5:52 PM PROJECTS MANAGER Pulse 110 07/11/2024 5:37 PM PROJECTS MANAGER Temperature 35.9 C (96.6 F) 07/11/2024 4:03 PM PROJECTS MANAGER Respiratory Rate 29 07/11/2024 5:37 PM PROJECTS MANAGER Oxygen Saturation 99% 07/11/2024 5:37 PM PROJECTS MANAGER Inhaled Oxygen Concentration - - Weight 67.4 kg (148 lb 9.4 oz) 07/11/2024 4:03 P M PROJECTS MANAGER Height 170.2 cm (5' 7) 07/11/2024 4:03 PM PROJECTS MANAGER Body Mass Index 23.27 07/11/2024 4:03 PM PROJECTS MANAGER Plan of Treatment Health Maintenance Due Date Last Done Comments A1C 1982 ADVANCE CARE PLANNING 1982 ANNUAL REVIEW OF HM ORDERS 1982 ASTHMA ACTION PLAN 1982 ASTHMA CONTROL TEST 1982 DIABETIC FOOT EXAM 1982 EYE EXAM 1982 LIPID 1982 MAMMO SCREENING 1982 MICROALBUMIN 1982 HEPATITIS C SCREENING 2000 HEPATITIS A VACCINE (1 of 2 - Risk 2-dose series) 2001 HEPATITIS B VACCINE (1 of 3 - 19+ 3-dose series) 2001 PAP 08/24/2010 02/22/2010, 08/27, 08/31/2005, Additional history exists PNEUMOCOCCAL VACCINE: PEDIATRICS (0 to 5 YEARS) AND AT-RISK PATIENTS (6 to 49 YEARS) (2 of 2 - PCV) 07/04/2017 07/04/2016 YEARLY PREVENTIVE VISIT 07/09/2018 07/09/2017, 09/21 DTAP/TDAP/TD VACCINE (7 - Td or Tdap) 05/11/2021 05/11/2011, 02/07/2011, 03/18/1984, Additional history exists COVID-19 VACCINE ( season) 2024 08/06/2021, 07/16/2021 INFLUENZA VACCINE (Season Ended) 2025 05/24/2021, 08/25/2020, 09/10/2018, Additional history exists BMP 07/11/2025 07/11/2024, 10/25, 04/04/2010 ZOSTER VACCINE (1 of 2) 2032 HIV SCREENING Completed 12/28/2004 HPV VACCINE Aged Out No longer eligi ble based on patient's age to complete this topic MENINGITIS VACCINE Aged Out No longer eligible based on patient's age to complete this topic Procedures Procedure Name Priority Date/Time Associated Diagnosis Comments BASIC METABOLIC PANEL STAT 07/11/2024 4:21 PM PROJECTS MANAGER HCL PAP THIN LAYER DIAGNOSTIC Routine 02/22/2010 12:00 AM CDT LGSIL (Low Grade Squamous Intraepithelial Lesion) on Pap Smear HCL HIV 1 & 2 ANTIBODY Routine 12/28/2004 2:33 PM CDT Supervis Other Normal Preg from Last 3 Months or Most Recently Relevant to Health Maintenance Results * (ABNORMAL) Basic metabolic panel (07/11/2024 4:21 PM PROJECTS MANAGER) Sodium 130(L) 135 - 145 mmol/L 07/11/2024 5:07 PM PROJECTS MANAGER [facility] Potassium 3.5 3.4 - 5.3 mmol/L 07/11/2024 5:07 PM PROJECTS MANAGER [facility] Chloride 95(L) 98 - 107 mmol/L 07/11/2024 5:07 PM PROJECTS MANAGER [facility] Carbon Dioxide (CO2) 18(L) 22 - 29 mmol/L 07/11/2024 5:07 PM PROJECTS MANAGER [facility] Anion Gap 17(H) 7 - 15 mmol/L 07/11/2024 5:07 PM PROJECTS MANAGER [facility] Urea Nitrogen 10.5 6.0 - 20.0 mg/dL 07/11/2024 5:07 PM PROJECTS MANAGER [facility] Creatinine 0.53 0.51 - 0.95 mg/dL 07/11/2024 5:07 PM PROJECTS MANAGER [facility] GFR Estimate >90 >60 mL/min/1.7 3m2 07/11/2024 5:07 PM PROJECTS MANAGER [facility] Comment:eGFR calculated us2020 CKD-EPI equation. Calcium 9.4 8.8 - 10.4 mg/dL 07/11/2024 5:07 PM PROJECTS MANAGER [facility] Comment:Reference intervals for this test were updated on 03/10/2024 to reflect our healthy population more accurately. There may be differences in the flagging of prior results with similar values performed with this method. Those prior results can be interpreted in the context of the updated reference intervals. Glucose 502(HH) 70 - 99 mg/dL 07/11/2024 5:07 PM PROJECTS MANAGER [facility] Blood BLOOD SPECIMEN / Unknown Venipuncture / Unknown 07/11/2024 4:21 PM PROJECTS MANAGER 07/11/2024 4:26 PM PROJECTS MANAGER Rafi Rosado MD LAB - BLOOD ORDERABLES Final Result [facility] Acute Care Lab [address] [facility] (1st floor, no room number) [place] [address], [facility] * (ABNORMAL) A THIN LAYER, DIAGNOSTIC PAP (02/22/2010 12:00 AM CDT) PAP ASC-US(A) [facility] [place] Report Patient Name: DANA COSTELLO MR#: [id number] Specimen #: [id number] Collected: 02/22/2010 Received: 02/23/2010 Reported: 03/01/2010 12:44 Ordering Phy(s): HEYDI ARAYA SPECIMEN/STAIN PROCESS: Pap thin layer prep diagnostic (SurePath) Pap-Cyto x 1, Reflex HPV x 1 SOURCE: Cervical, endocervical Pap thin layer prep diagnostic (SurePath) SPECIMEN ADEQUACY: Satisfactory for evaluation. -Transformation zone component present. CYTOLOGIC INTERPRETATION: Epithelial Cell Abnormality: Squamous Cell: Atypical squamous cells-of undetermined significance (ASC-US). Organism(s): -Shift in tevin suggestive of bacterial vaginosis. RECOMMENDATIONS: Comment: Molecular testing for HPV has been ordered for this specimen. Electronically signed out by: Earle Wetzel M.D. Processed and screened at [facility] CLINICAL HISTORY: LMP: 02/09/2010 Previous abnormal pap: LSIL, 09/21/08 Previous normal pap: NIL, 08/31/05 Previous ASC-US: 12/28/04 Previous abnormal pap: h/o BRENDAN-2, Papanicolaou Test Limitations: Cervical cytology is a screening test with limited sensitivity; regular screening is critical for cancer prevention; Pap tests are primarily effective for the diagnosis/preventi on of squamous cell carcinoma, not adenocarcinomas or other cancers. TESTING LAB LOCATION: [address] [place] [address] COLLECTION SITE: Client: [facility] Location: [facility] (W) [facility] 02/22/2010 02/23/2010 1:1 4 PM CDT us Heydi Araya MD LABORATORY Final Result [facility] * HIV Screening (12/28/2004 2:33 PM CDT) HIV 1&2 Antibody Negative NEG [facility] 12/28/2004 2:33 PM CDT 12/28/2004 2:38 PM CDT us Sharmila Simpson NP LABORATORY Final Result [facility] [address] [place] [address] from Last 3 Months or Most Recently Relevant to Health Maintenance [place] Care Teams Roof Promenade Tile Setter Relationship Specialty Start Date End Date System, Provider Not In PCP - General Clinic 07/02/17
--- OUTSIDE RECORDS SUMMARY | 2025-02-05 09:05 | XMS_ITS | Encounter Summary ---
Author Organization [place] Address [address] [facility] [place] [address] Care Team Providers Care Connie Cleaner Name Role Phone Sandeep Clancy MD Primary Care Provider [phone] Rafat Helton MD Primary Care Provider [phone] Frw, None Primary Care Provider Unavailabl Elly Corral MD Unavailable [phone] Misael Zuleta MD Unavailable Unavailable System, Provider Not In Primary Care Provider Un available Reason for Visit * Reason Onset Date Comments Refill Request 06/07/2005 Adderahl 5 Encounter Details Date Type Department Care Team (Late st Contact Info) Description 06/07/2005 Refill [facility] in [facility] [address] [place] [id number] Misael Zuleta MD Refill Request (Adderahl 5) Social History Tobacco Use Types Packs/Day Years Used Date Smoking Tobacco: Every Day Cigarettes Comments: pt trying to quit 12/15/04 less than 5 per day Alcohol Use Standard Drinks/Week Comments No 0 (1 standard drink = 0.6 oz pur e alcohol) not with Comments Yes Sex and Gender Information Value Date Recorded Sex Assigned at Not on file Legal Sex Female 4:14 AM REPAIRER VENEER SHEET Gender Identity Not on file Sexual Orientation Not on file Occupation Industry Job Start Date Job End Date homemaker Not on file Not on file Not on file documented as of this encounter Miscellaneous Notes * Telephone Encounter - Leydi Perales - 06/07/2005 1:57 PM CDT She left voice message woul like to pepper picker Adderahl a little early as has wedding to go to and will be out of town until later next week.WOuld like to get it today,also asked if could be sent to pharmacy if possible so didn't have to come all the way here. [phone]. documented in this encounter Plan of Treatment Not on file documented as of this encounter Visit Diagnoses Diagnosis Adjustment disorder with mixed anxiety and depressed mood- Primary documented in this encounter Care Teams Connie Cleaner Relationship Specialty Start Date End Date Sandeep Clancy MD XX NO INFO FOUND XX [place] [address] PCP - General 08/20/07 07/01/17 Rafat Helton MD XX NO INFO FOUND XX [place]UE[place] [address] PCP - General 03/25/06 08/19/07 Frw, None PCP - General 09/17/00 03/24/06 Elly [place]ray[place] MD [place] [address] PCP - Obstetrics/Gynecology 07/26/05 1 08/29/14 Misael Zuleta MD PCP - Obstetrics/Gynecology 09/17/0006/28 System, Provider Not In PCP - General Clinic 07/02/17 documented as of this encounter
--- OUTSIDE RECORDS SUMMARY | 2025-02-05 09:05 | XMS_ITS | Clinical Summary ---
Author Organization [facility] Address [address] [place] [address] Care Team Providers Care Cemetery Manager Name Role Phone Elsewhere, Pcp Primary Care Provider Unavailabl e Source Comments Patient records contain information from all sites at [facility]. For routine questions regarding patient records, call [phone] during business hours, M-F 8:00 AM - 5:00 PM Central Time. Record requests for emergency care only can be directed to [phone] at any time.[facility] Allergies Active Allergy Reactions Criticality Noted Date Comments Bupropion Hcl GI intolerance Medium 09/11/2011 Nausea & Vomiting Hydroxyzine Other (see comments) High 09/05/2021 Dry eyes, eye pain Sertraline Headache Medium 09/11/2011 Trifluoperazine Anxiety High 05/01/2012 Severe akathisia Medications * This document contains information received from the source organization and may not represent a complete record from that organization. blood-glucose meter misc Test as directed for diabetes control. 1 each 2018 Active blood glucose ctl high,nml,low solution Glucose control solution provides an easy way to ensure accurate blood glucose testing. 1 each 2018 Active carboxymethylcel lulose (REFRESH PLUS) 0.5 % ophthalmic solution Administer 1 drop into both eyes 3 (three) times a day as needed for dry eyes. 1 each 2020 Active alcohol swabs pads, medicated Use as needed for diabetes control 1500 each 3 2020 Active acetaminophen (TYLENOL) 500 mg tablet Take 2 tablets (1,000 mg total) by mouth every 6 (six) hours as needed for pain. 90 tablet 2021 Active ibuprofen (ADVIL,MOTRIN) 600 mg tablet Take 1 tablet (600 mg total) by mouth every 6 (six) hours as needed for pain. 2021 Active sennosides-docus ate sodium (SENOKOT-S) 8.6-50 mg per tablet Take 2 tablets by mouth 2 (two) times a day as needed for constipation. 2021 Active melatonin 10 mg tablet Take 1 tablet (10 mg total) by mouth at bedtime as needed (sleep). 2021 Active gabapentin (NEURONTIN) 600 mg tabletIndication s:Anxiety Generalized Disorder Take 2 tablets (1,200 mg total) by mouth 3 (three) times a day. 30 tablet 2021 Active vit27,calcium/ir on/FA (multivitamin/mi neral-) tablet Take 1 tablet by mouth daily. 90 tablet 2021 Active folic acid 1 mg tablet Take 1 tablet (1 mg total) by mouth daily. 90 tablet 2021 Active clonazePAM (KlonoPIN) 1 mg tablet Take 1 tablet (1 mg total) by mouth 2 (two) times a day as needed for anxiety. Continue taper as outpatient back to pre-admission dose of 0.5 mg daily PRN. 60 tablet 2021 Active ondansetron ODT (ZOFRAN-ODT) 4 mg disintegrating tablet Dissolve 1 tablet (4 mg total) in the mouth every 6 (six) hours as needed for nausea or vomiting. 20 tablet 2021 Active nicotine polacrilex (NICORETTE) 4 mg gum Chew 1 each (4 mg total) as needed for smoking cessation. Chew 1 piece of gum every 1 to 2 hours as needed or as directed for nicotine withdrawal symptoms 100 each 1 2021 Active glucagon 1 mg injection Use as directed for low blood sugar. 1 each 1 2021 Active magnesium oxide (MAG-OX) 400 mg (241.3 mg magnesium) tablet Take 2 tablets (800 mg total) by mouth 2 (two) times a day before breakfast and dinner. *please take daily x 3 days or until your lab appt during the week of 03/13* 2021 Active BD Ultra-Fine Short Pen Needle 31 gauge x 5/16 needle Inject 4 Injection under the skin daily. 100 each 3 2022 Active blood sugar diagnostic strips 4 test daily. 120 test 2022 Active albuterol (ProAir HFA) 90 mcg/actuation inhaler Two inhalations every 6 hours as needed for wheeze or shortness of breath 8.5 g 3 2022 Active amphetamine-dext roamphetamine (ADDERALL XR) 30 mg 24 hr capsule Take 30 mg by mouth daily. Active insulin glargine (Basaglar KwikPen U-100 Insulin) 100 unit/mL (3 mL) injection Inject 45 Units under the skin at bedtime. Pharmacy select brand per patient insurance/preferenc e. 40.5 mL 1 2023 Active Additional Information Patient taking differently: 30 Unitssubcutaneous Daily at bedtime, Pharmacy select brand per patient insurance/preference., Reported on 11/28/2024 insulin aspart U-100 (NovoLOG FlexPen) 100 unit/mL (3 mL) pen Inject 15 Units under the skin 3 (three) times a day with meals. In addition to correction 15 mL 2024 Active glipiZIDE (GLUCOTROL XL) 10 mg 24 hr tablet Take 1 tablet (10 mg total) by mouth 2 (two) times a day before breakfast and dinner. 90 tablet 08/25 Discontinued hydrOXYzine (ATARAX) 25 mg tablet Take 1 tablet (25 mg total) by mouth 2 (two) times a day as needed for anxiety. 30 tablet 01/01 Discontinued lidocaine viscous (XYLOCAINE) 2 % mucosal solution Apply 15 mL to the mouth or throat 4 (four) times a day. 100 mL 3 01/01 Discontinued insulin aspart U-100 (NovoLOG FlexPen) 100 unit/mL (3 mL) pen Inject 15 Units under the skin 3 (three) times a day with meals. In addition to correction 01/31 Discontinued Active Problems Problem Noted Date Diagnosed Date Hypercalcemia 03/10/2022 Hypokalemia 03/10/2022 Hypoalbuminemia 03/10/2022 Diabetes Mellitus Type 1 With Ketoacidosis Witho ut Coma 01/21/2022 Alcohol Moderate Or Severe U se Disorder (Dependence) With Withdrawal Uncomplicated 11/20/2021 Trigeminal Neuralgia 11/20/2021 Delusion Parasitosis 08/23/2021 Noncompliance With Medication Regimen 08/23/2021 Neuropathy 08/23/2021 Extraction Teeth Loss Complete 08/16/2021 Ulcer Cornea Right 01/02/2021 Ulcer Cornea Left 07/01/2020 Hypomagnesemia 10/06/2018 Hyperlipidemia 09/15/2018 Asthma Mild Intermittent Tobacco User 06/17/2018 Personal History Of Nonsuicidal Self Harm 2017 Overview (05/22/2018): Overview: Aug 2017 [place]. February 2018 OD Gabapentin. Personal History Of Suicidal Behavior 03/17/2018 Overview (08/23/2021): Overview: Aug 2017 [place]. February 2018 OD Gabapentin. Aug 2017 [place] bridge [place] river. February 2018 OD Gabapentin. 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 09/18/2011 Obsessive Compulsive Disorder 09/15/2011 Restless Leg Syndrome 05/05/2010 Anxiety Generalized Disorder Resolved Problems Problem Noted Date Diagnosed Date Resolved Date Failure Renal Acute (Acute Kidney Injury) 03/10/2022 03/10/2022 Hypophosphatemia 08/24/2021 08/25/2021 Suicide Attempt Initial Encounter 04/27/2021 08/23/2021 Enterocolitis Due To Clostri dium Difficile Recurrent 03/27/2019 08/23/2021 Hematochezia 02/14/2019 02/17/2019 Poisoning By Other Antiepile ptic And Sedative Hypnotic Drugs Accidental Unintentional Initial 03/16/2018 04/29/2019 Body Dysmorphic Disorder 02/22/201811/2018 Sialoadenitis 05/07/2014 04/29/2019 Poisoning By Benzodiazepines Accidental Unintentional Initial 09/15/2011 04/29/2019 Overview (08/02/2017): Overview: Recommended taper off of klonopin in hospital 09/15/11 Eating Disorder 05/05/2010 04/29/2019 Encounters Date Type Department Care Team Description 01/31/2025 6:16 PM CDT - 01/31/2025 9:43 PM CDT Emergency [place] [address] [place] [phone] Annalee Le D.O. Diabetes Mellitus Type 1 With Ketoacidosis Without Coma (HCC) (Primary Dx); Patient's Other Noncompliance With Medication Regimen For Other Reason; Hyperglycemia; Dehydration Discharge Disposition: Home or Self Care 11/28/2024 8:19 AM CDT - 11/28/2024 10:50 AM CDT [facility] Emergency[facility]Urgent Care Department [address] [place] [phone] Saad Palomo M.D., M.B.A. Other Chest Pain (Primary Dx) Discharge Disposition: Home or Self Care 11/26/2024 2:14 PM CDT - 11/26/2024 3:00 PM CDT [facility] Emergency/Urgent Care Department [address] [place] [phone] Discharge Disposition: Left Against Medical Advice or Discontinued Care 11/19/2024 Nurse Triage Department of Family Medicine in [place], [place] [address] [place] [phone] Che Waller, RJadenN. Hyperglycemia from Last 3 Months Immunizations Immunization Administration Dates Next Due DTP 03/18/1984, 3,1982,1981 Influenza Split 06/26/2017,05/26/2016,05/27/2011 Influenza, Injectable, Quadrivalent 07/03/2017,1 Influenza, Unspecified 07/04/2016,06/17/2015 MMR 10/19/1983 PPSV23 07/04/2016 Polio, Unspecified 03/18/1984, 3,1982,1981 SARS-COV-2 (COVID-19) - PFIZ ER (Discontinued)(12 years or older) 08/06/2021,07/16/2021 Tdap 05/11/2011,02/07/2011 influenza trivalent high dos e (HD)(PF) 06/26/2017,05/26/2016,05/27/2011 influenza vaccine quad (FLUZONE/FLUARIX) (6 months and older)(PF) 05/24/2021,08/25/2020,09/10/2018,2016,07/04/2016 Family History Medical History Relation Name Comments Depression Father Depression Mother Amblyopia Neg Hx Blindness Neg Hx Cancer Neg Hx Cataracts Neg Hx Diabetes Neg Hx Glaucoma Neg Hx Hypertension Neg Hx Macular degeneration Neg Hx Retinal degeneration Neg Hx Retinal detachment Neg Hx Strabismus Neg Hx Stroke Neg Hx Thyroid disease Neg Hx Vision loss Neg Hx Relation Name Status Comments Father Mother Social History Tobacco Use Types Packs/Day Years Used Date Smoking Tobacco: Every Day Cigarettes 1 27.4 Started: 09/03/1997 Smokeless Tobacco: Never Tobacco Cessation:Ready to Q uit: Not Asked; Counseling Given: Not Answered Alcohol Use Standard Drinks/Week Comments Yes 0 [...] often do you attend chur ch or bahai services? Never 08/14/2021 Do you belong to any clubs o r organizations such as lutheran groups, unions, fraternal or athletic groups, or [...] Answer Date Recorded PHQ-2 Score 6 01/04/2022 [facility] Answer Date Recorded [...] place to sleep or slept in a nursing home (including now)? Yes 08/14/2021 Depression Answer Date Recor ded PHQ-9 Total Score (max 27) 20 01/04 Nutrition Answer Date Recorded On average, [...] Sex Assigned at Female 08/14/2021 9:10 AM PIPELINE WELDER Legal Sex Female 3:04 AM PIPELINE WELDER Gender Identity Female 08/14/2021 9:10 AM PIPELINE WELDER Sexual Orientation Straight 08/14/2021 9: 10 AM PIPELINE WELDER Last Filed Vital Signs Vital Sign Reading [...] Mass Index 21.65 01/31/2025 6:20 PM CDT Plan of Treatment Health Maintenance Due Date Last Done Comments Hepatitis C Screening 1982 Mammogram 1982 Office Visit for Blood Pressure Check / Re-check 1982 Hepatitis B Vaccines (1 of 3 - 19+ 3-dose series) 2001 Pneumococcal vaccine (0-49 years) (2 of 2 - PCV) 07/04/2017 07/04/2016 Diabetic Office Visit with Foot Exam 08/30/2017 08/30/2016 Urine Albumin 09/15/2019 09/15/2018, 06/19/2016 DTaP,Tdap,and Td Vaccines (7 - Td or Tdap) 05/11/2021 05/11/2011, 02/07/2011, 03/18/1984, Additional history exists Dilated Eye Exam 05/30/2022 05/30/2021 Cervical/Vaginal Cancer Screening 07/09/2022 07/09/2017, 02/22/2010, 06/09/2009 (Performed elsewhere) Diabetes Education 02/02/2023 02/02/2022, 08/30/2016 Lipid (Cholesterol) Screening 03/10/2023 03/10/2022, 07/16/2021, 09/15/2018, Additional history exists COVID-19 Vaccine (2023- season) 2024 08/06/2021, 07/16/2021 Influenza Vaccine (#1) 2024 , 08/25/2020, 09/10/2018, Additional history exists Hemoglobin A1C 07/14/2024 04/13/2024, 03/3 08/2023, 06/07/2023, Additional history exists Depression Screening (Annual PHQ-2) 08/26/2024 Creatinine Level (Kidney Function Test) 01/31/2026 01/31/2025, 01/31/2025, 11/28/2024, Additional history exists IPV Vaccines Completed 03/18/1984, 02/0 03/1983, 1982, Additional history exists Glucose Test for Med Monitoring Discontinued 01/31/2025, 01/31/2025, 01/31/2025, Additional history exists HPV Vaccines Aged Out No longer eligi ble based on patient's age to complete this topic Procedures Procedure Name Priority Date/Time Associated Diagnosis Comments BASIC METABOLIC PANEL, S/P Timed 01/31/2025 8:10 PM CDT GLUCOSE POCT, B Routine 01/31/2025 7:31 PM CDT VBG (VENOUS BLOOD GAS), POCT, B STAT 01/31/2025 6:30 PM CDT BASIC METABOLIC PANEL, S/P STAT 01/31/2025 6:30 PM CDT CBC WITH DIFFERENTIAL, B STAT 01/31/2025 6:30 PM CDT GLUCOSE POCT, B Routine 01/31/2025 6:18 PM CDT GLUCOSE POCT, B Routine 11/28/2024 10:39 AM CDT DX CHEST PORTABLE 1 VIEW RAD - Semiurgent (Fast; most ED patients; some inpatients) 11/28/2024 10:09 AM CDT TROPONIN T, BASELINE, 5TH GEN, P STAT 11/28/2024 8:31 AM CDT BASIC METABOLIC PANEL, S/P STAT 11/28/2024 8:31 AM CDT CBC WITH DIFFERENTIAL, B STAT 11/28/2024 8:31 AM CDT ECG STAT 11/28/2024 8:25 AM CDT GLUCOSE POCT, B Routine 11/26/2024 2:20 PM CDT HEMOGLOBIN A1C, B STAT 11/24/2023 9:2 5 PM CDT LIPID PANEL, S Routine 03/10/2022 3:52 AM CDT ALBUMIN, RANDOM, U Routine 09/15/2018 10 :15 AM PIPELINE WELDER Diabetes Mellitus Type 2 (HCC) EXT THINPREP W/HPV CO-TEST SCREEN Routine 07/09/2017 from Last 3 Months or Most Recently Relevant to Health Maintenance Results * (ABNORMAL) Basic Metabolic Panel (01/31/2025 8:10 PM CDT) Only the most recent of3 resultswithin the time period is included. Potassium, P 3.7 3.6 - 5.2 mmol/L [...] 8:10 PM CDT 01/31/2025 8:12 PM CDT Antony Harrell M.D. LAB BLOOD ADD-ON Final Resul t Performing Organization Address [facility]/ZIP Co de Phone Number [facility] [address] [place] [address], [facility] NPRG [address] [address] * (ABNORMAL) Glucose, POCT (01/31/2025 7:31 PM CDT) Only the most recent of4 resultswithin the time period is included. Glucose, POCT, B 373(H) 70 - 140 mg/dL 01/31/2025 7:31 PM CDT NPRG Blood 01/31/2025 7:31 PM CDT 01/31/2025 7:38 PM CDT us [facility] LAB POCT ORDERABLES-MANUAL Final Result Performing Organization Address [facility] Co de Phone Number [facility] [address] [place] [address], [address] [address] * (ABNORMAL) Blood Gas, Venous, POCT, Blood [...] PM CDT us Annalee Le D.O. LAB POCT ORDERABLES - DEVICE Fin al Result [facility] [address] [place] [address], [facility] NPRG [facility] [address] [place] [address] * (ABNORMAL) CBC with Differential, Blood (01/31/2025 6:30 PM CDT) Only the most recent of2 resultswithin the time period is included. Hemoglobin 16.6(H) 11.6 - 15.0 g/dL 01/31/2025 [...] Le D.O. LAB BLOOD ADD-ON Final Result [facility] [address] [place] [address], [facility] NPRG [facility] [address] [place] [address] * DX Chest Portable 1 View (11/28/2024 10:09 AM CDT) Anatomical Region Laterality Modality Chest, Thoracic RST LOS, Tho racic ARZ LOS, Thoracic FLA LOS N/A Digital Radiography Impressions 11/28/2024 12:00 PM CDT No acute abnormality. Narrative 11/28/2024 12:00 PM CDT EXAM: DX CHEST PORTABLE 1 VIEW COMPARISON: Chest radiograph from 03/09/2022 FINDINGS: The lungs and costophrenic sulci are clear. No pneumothorax. The cardiomediastinal contours are within normal limits. No acute osseous abnormality. Procedure Note Cristofer Morin M.D. - 11/28/2024 EXAM: DX CHEST PORTABLE 1 VIEW COMPARISON: Chest radiograph from 03/09/2022 FINDINGS: The lungs and costophrenic sulci are clear. No pneumothorax. Thecardiomediastinal contours are within normal limits. No acute osseousabnormality. IMPRESSION: No acute abnormality. Saad Palomo M.D., M.B.A. IMG DIAGNOSTIC [facility] G[facility] PROCEDURES Final Result * Troponin T, Baseline with 2 Hour/6 Hour Reflex Biomarker Panel (11/28/2024 8:31 AM CDT) Troponin T, Baseline, 5th gen <6 <=10 ng/L 11/28/2024 8:55 AM CDT NPRG Blood (Blood, Venous) 11/28/2024 8:31 AM CDT 11/28/2024 8:34 AM CDT us Saad Palomo M.D., M.B.A. LAB BLOOD TROPONIN Final Result [facility] [address] [place] [address], [facility] NPRG [facility] [address] [place] [address] * ECG 12 Lead (11/28/2024 8:25 AM CDT) Ventricular Rate ECG/Min 96 BPM MUSE DE Interval 178 ms MUSE QRSD Interval 92 ms MUSE QT Interval 392 ms MUSE QTC Interval 495 ms MUSE P [place] 74 degrees MUSE R [place] 66 degrees MUSE T Wave [place] 67 degrees MUSE 11/28/2024 8:25 AM CDT 11/29/2024 4:04 PM CDT Impressions MUSE - 11/28/2024 8:32 AM CDT Normal sinus rhythm Cannot rule out Anteroseptal infarct Prolonged QT When compared with ECG of 26-May-2024 22:29, QT has lengthened Reviewed by NIDIA Hernández Narrative Procedure Note Ramon Monsivais M.D. - 11/29/2024 IMPRESSION: Normal sinus rhythm Cannot rule out Anteroseptal infarct Prolonged QT When compared with ECG of 26-May-2024 22:29, QT has lengthened Reviewed by NIDIA Hernández us Saad Palomo M.D., M.B.A. ECG ORDERABLES Ed ited Result - Final MUSE NA * (ABNORMAL) Hemoglobin A1c (11/24/2023 9:25 PM CDT) Hemoglobin A1c, B 9.9(H) 4.2 - 5.6 % 11/24/2023 9:55 PM CDT NPRG Comment: Hemoglobin A1c values greater than or equal to 6.5 percent are diagnostic for diabetes mellitus. Diagnosis should be confirmed by repeat testing. In diabetic patients, HbA1c goals should be discussed with healthcare provider. Blood (Blood, Venous) 11/24/2023 9:25 PM CDT 11/24/2023 9:39 PM CDT Katya Maurice M.D., M.B.A. LAB BLOOD ADD-ON Final Result [facility] [address] [place] [address], [place] NPRG [facility] [address] [place] [address] * (ABNORMAL) Lipid Panel (03/10/2022 3:52 AM CDT) Triglycerides 172(H) mg/dL 03/10/2022 12:23 PM CDT DTL Comment: ----REFERENCE VALUE---- Normal: <150 mg/dL Borderline High: 150-199 mg/dL High: 200-499 mg/dL Very High: > or =500 mg/dL Cholesterol, Total 132 mg/dL 2021 12:23 PM CDT DTL Comment: ----REFERENCE VALUE---- Desirable: < 200 mg/dL Borderline High: 200 - 239 mg/dL High: > or = 240 mg/dL Cholesterol, LDL, Calculated 78 mg/dL 03/10/2022 12:23 PM CDT DTL Comment: ----REFERENCE VALUE---- Desirable: <100 mg/dL Above Desirable: 100-129 mg/dL Borderline High: 130-159 mg/dL High: 160-189 mg/dL Very High: >=190 mg/dL ----ADDITIONAL INFORMATION---- LDL cholesterol calculated using the Beck/NIH equation. Cholesterol, HDL, S 24(L) >=50 mg/dL 03/10/2022 12:23 PM CDT DTL Cholesterol, Non-HDL, Calculated 108 mg/dL 03/10/2022 12:23 PM CDT DTL Comment: ----REFERENCE VALUE---- Desirable: <130 mg/dL Above Desirable: 130-159 mg/dL Borderline High: 160-189 mg/dL High: 190-219 mg/dL Very High: > or =220 mg/dL Fasting (8 HR or more) Unknown 03/10/2022 11:52 AM CDT DTL Blood (Blood, Venous) 03/10/2022 3:52 AM CDT 03/10/2022 11:52 AM CDT us Kingsley Cartagena, Ch.B. LAB BLOOD ADD-ON Final R esult Performing Organization Address City/[facility]/ZIP Co de Phone Number [facility] [address] [place] [address], [facility] [place] [address] * (ABNORMAL) Microalbumin, Random, Urine (09/15/2018 10:15 AM PIPELINE WELDER) Microalbumin 127.2 mg/L 09/15/2018 10:54 AM PIPELINE WELDER [facility] Creatinine 199 mg/dL 09/15/2018 10:54 AM PIPELINE WELDER [facility] Albumin/Creatinin e Ratio 64(H) <25 mg/g 09/15/2018 10:54 AM PIPELINE WELDER [facility] Urine (Urine, Voided) 09/15/2018 10:15 AM PIPELINE WELDER 09/15/2018 10:16 AM PIPELINE WELDER us Luann Milton APRN, C.N.P., D.N.P. LAB URINE O RDERABLES Final Result Performing Organization Address [facility]/ZIP Co de Phone Number [facility] [address] [address], [facility] * EXT ThinPrep w/HPV Co-Test Screen (07/09/2017) EXT ThinPrep w/HPV Co-Test Screen Normal - See Scanned Report for Details Normal - See Scanned Report for Details, HIMS - Report Received and Scanned Comment:See Care Everywhere for results: Thin Prep Vial (Cervix/Endocervi x) 07/09/2017 Emelia Alicia Crandallcharla Bermudez - 07/09/2017 Performed at [facility], [address] [place] [id number] CLIA number [id number] Specimen Collected: 07/09/17 14:31 Last Resulted: 07/09/17 14:32 Received From: [employer] Result Received: 08/17/19 09:37 us Historical Provider LAB PAP PATHDX ORDERABLES Fi nal Result from Last 3 Months or Most Recently Relevant to Health Maintenance Insurance [facility] Advance Directives For more information, please contact: [phone] * Full Code (Latest Code Status on File) Date Activated Date Inactivated Comments 03/09/2022 11:26 AM 03/11/2022 3:41 PM Question Answer Comments Full Code: Discussed * Full Code Date Activated Date Inactivated Comments 03/09/2022 10:39 AM 03/09/2022 11:26 AM Question Answer Comments Full Code: Not Discussed Due to: Patient not available * Full Code Date Activated Date Inactivated Comments 02/02/2022 12:18 AM 02/04/2022 1:55 PM Question Answer Comments Full Code: Not Discussed Due to: Patient not available * Full Code Date Activated Date Inactivated Comments 01/22/2022 10:27 AM 01/24/2022 4:06 PM Question Answer Comments Full Code: Discussed * Full Code Date Activated Date Inactivated Comments 12/27/2021 7:38 PM 01/01/2022 3:31 PM Question Answer Comments Full Code: Not Discussed Due to: Not medically appropriate Care Teams Cemetery Manager Relationship Specialty Start Date End Date Elsewhere, Pcp PCP - General Internal Medicine 02/06/22
--- OUTSIDE RECORDS SUMMARY | 2025-02-05 09:05 | XMS_ITS | Clinical Summary ---
Author Organization [employer] [facility] Address [address] [place] [id number] Care Team Providers Care Bag Liner Name Role Phone Pcp, No Primary Care Provider Unavailabl e Allergies Active Allergy Reactions Criticality Noted Date Comments Bupropion Hcl *Unknown 08/22/2012 arjun did not list reaction to this medication Hydroxyzine Other - Describe In Comment Field High 09/05/2021 Dry eyes, eye pain Trifluoperazine Agitation 05/01/2012 Severe akisthesia Trazodone Headache Low 09/14/2011 Bupropion Nausea And Vomiting 09/11/2011 Sertraline Headache 09/11/2011 Medications * This document contains information received from the source organization and may not represent a complete record from that organization. Insulin Raiford, Disposable, (KIM PEN NEEDLE) 32 gauge x 5/32 Use as directed with insulins. 100 Each 8 2:01 PM CDT 03/10/20 18 Active dextrose 40% oral gel (GLUTOSE) 40 %Indications:DM (diabetes mellitus), type 2 with neurological complications (HC) Take 1-2 Tubes by mouth every 15 minutes if needed for Blood Gluc < Specify (For Blood Glucose management per Hypoglycemia Protocol). 0 04/16/20 18 Active albuterol HFA 90 mcg/actuation inhalerIndications :Sarcoidosis Inhale 1-2 Puffs by mouth every 6 hours if needed (shortness of breath). 18 g 05/04/20 18 Active Insulin Raiford, Disposable, 31 gauge x 16Indications:D M (diabetes mellitus), type 2 with neurological complications (HC) For administering insulin at home. 1 box 05/04/20 18 Active melatonin 10 mg tabIndications:PTS D (post-traumatic stress disorder) Take 10 mg by mouth at bedtime. 30 Tab 05/05/20 18 Active gabapentin (NEURONTIN) 300 mg capsuleIndications :DM (diabetes mellitus), type 2 with neurological complications (HC) Take 4 Capsules (1,200 mg) by mouth 3 times daily. 270 capsule. 09/25/19 22 Active clonazePAM (KLONOPIN WAFER) 0.5 mg disintegrating tablet Take 0.5 mg by mouth. 09/21/19 22 Active nicotine (NICORETTE) 4 mg gumIndications:Cig arette nicotine dependence without complication Chew 1 Each (4 mg) every hour while awake as needed for Nicotine Craving. 160 Each 2 09/25/19 22 Active zolpidem (AMBIEN) 5 mg tablet Take 5 mg by mouth. Active ondansetron (ZOFRAN ODT) 4 mg disintegrating tablet 01/26/20 22 Active Glucagon Emergency Kit, human, 1 mg injection 03/11/20 22 Active carboxymethylcellu lose 0.5% 0.5 % drop ophthalmic drops Place 1 Drop into the eye(s). 08/07/20 21 Active Blood-Glucose Meter Test as directed for diabetes control. 08/07/20 21 Active Contour Next Test Strips strip 06/09/20 22 Active blood sugar diagnostic strip As directed. 07/05/20 20 Active alcohol swabs Use as needed for diabetes control 08/07/20 Active blood glucose ctl high,nml,low soln Glucose control solution provides an easy way to ensure accurate blood glucose testing. 08/07/20 21 Active acetaminophen (TYLENOL EXTRA STRGTH) 500 mg tablet Take 1,000 mg by mouth every 6 hours if needed. 12/28/19 22 Active ibuprofen (ADVIL; MOTRIN) 600 mg tablet Take 600 mg by mouth every 6 hours if needed. 01/02/20 22 Active NovoLOG Flexpen U-100 Insulin 100 unit/mL (3 mL) pen Take 12-16 units with meals plus 2 units for every 50 mg/dL >150 mg/dL 06/07/20 23 Active magnesium oxide (MAG-OX 400) 400 mg tablet Take 800 mg by mouth. 03/11/20 22 Active PNV cmb#95-ferrous fumarate-FA 28 mg iron- 800 mcg tab Take 1 Tablet by mouth once daily. 01/05/20 22 Active folic acid 1 mg tablet Take 1 mg by mouth. 01/05/20 Active dextroamphetamine- amphetamine (Adderall XR) 30 mg Extended-Release capsule Take 30 mg by mouth once daily. Active insulin glargine, U-100, 100 unit/mL (3 mL) pen Inject 45 units subcutaneous before bedtime. 06/07/20 Active Active Problems Problem Noted Date Diagnosed Date Delusional disorders 08/23/2021 Neuropathy 08/23/2021 Surgical absence of teeth 08/16/2021 Abnormal liver function test 01/28/2019 Hyperlipidemia 09/15/2018 Mild intermittent asthma 06/17/2018 Sarcoidosis 03/31/2018 Tobacco dependence 03/17/2018 History of suicide attempt 03/17/2018 Overview (04/23/2019): Overview: Aug [address] [place] February 2018 OD Gabapentin. Personal history of suicidal behavior 03/17/2018 Overview (10/31/2021): Overview: Aug 2017 [place]. February 2018 OD Gabapentin. Aug 2017 [place]. February 2018 OD Gabapentin. History of self injurious behavior 03/17/2018 Overview (10/31/2021): Overview: Aug 2017 [place]. February 2018 OD Gabapentin. 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 Designated pharmacy: Replaced By [facility] Prescribing physician: Linette Kent MD Diagnosis: Anxiety Anxiety state, unspecified 11/30/2010 ADD (attention deficit disorder) 11/30/2010 Restless legs syndrome (RLS) 05/05/2010 Eating disorder, unspecified 05/05/2010 Obsessive-compulsive disorder 03/28/2006 Overview (10/31/2021): Problem list name updated by automated process. 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 Resolved Problems Problem Noted Date Diagnosed Date Resolved Date Enterocolitis 03/27/2019 10/31/2021 Elevated aspartate aminotransferase level 12/01/2018 10/31/2021 Elevated blood pressure read ing without diagnosis of hypertension 09/15/2018 10/31/2021 Homelessness 03/17/2018 10/31/2021 Suicide attempt by inadequate means 03/16/2018 10/31/2021 AGUSTÍN (generalized anxiety disorder) 02/22/2018 04/05/2018 Sialoadenitis 05/07/2014 10/31/2021 Depressive disorder, not elsewhere classified 05/24/20 12 07/30/2012 Adjustment disorder with mix ed disturbance of emotions and conduct 05/24/2012 07/30/2012 Polysubstance (excluding opioids) dependence 2 07/30/2012 Suicidal behavior 05/24/2012 05/24/2012 Unspecified personality disorder 05/24/2012 10/31/2021 Suicidal ideation 05/24/2012 07/30/2012 Depressive disorder, not elsewhere classified 09/17/19 12 07/30/2012 Unspecified constipation 09/17/201112/2011 Borderline personality disorder 09/15/2011 07/30/2012 Cough 09/15/2011 07/30/2012 Benzodiazepine overdose 09/15/201103/2022 Overview (09/19/2011): Recommended taper off of klonopin in hospital 09/15/11 Poisoning by benzodiazepine 09/15/2011 10/31/2021 Overview (04/23/2019): Overview: Overview: Recommended taper off of klonopin in hospital 09/15/11 Depression with anxiety 09/11/201112/2011 Drug dependence 05/05/2010 07/30/2012 Overview (03/26/2011): Adderall. Adjustment disorder with mix ed anxiety and depressed mood 06/14/2004 10/31/2021 AGUSTÍN (generalized anxiety disorder) 10/31/2021 PTSD (post-traumatic stress disorder) 10/31/2021 Family History Medical History Relation Name Comments Good Health Father Good Health Mother Other Sister anorexia Relation Name Status Comments Father Mother Sister Social History Tobacco Use Types Packs/Day Years Used Date Smoking Tobacco: Every Day Cigarettes 09 16 Started: 02/20/2003 Passive Smoke Exposure: Never Smokeless Tobacco: Never Tobacco Cessation:Ready to Q uit: Not Asked; Counseling Given: Not Answered Comments:encouraged to try to quit after discharge Alcohol Use Standard Drinks/Week Comments Not Currently 0 (1 standard drink = 0.6 oz pur e alcohol) 1L Vodka in one month PHQ-2 Answer Date Recorded PHQ-2 Score 6 10/27/2018 Social Connections Answer Date Recorded Frequency of Communication with Friends and Fami ly 0 10/31/2022 Financial Resource Strain Answer Date R ecorded Difficulty of Paying Living Expenses 3 10/31/2022 Difficulty of Paying Living Expenses Not on file 10/31/2022 Food Insecurity Answer Date Recorded Worried About Running Out of Food in the Last Ye ar 1 10/31/2022 Transportation Needs Answer Date Record ed Lack of Transportation (Medical) 1 10/31/2022 Housing Stability Answer Date Recorded Unable to Pay for Housing in the Last Year 1 10/31/2022 Interpersonal Safety Answer Date Record ed Are you being hit, kicked, p ushed or yelled at (see row info)? No 04/13/2024 Interpersonal Safety Abuse 12 - 18 Not on file 04/13/2024 Interpersonal Safety Ambulatory Vulnerability No t on file 04/13/2024 Comments No Sex and Gender Information Value Date Recorded Sex Assigned at Not on file Legal Sex Female 6:16 AM [employer] Gender Identity Not on file Sexual Orientation Not on file Obstetrics History Last Filed Vital Signs Vital Sign Reading Time Taken Comments Blood Pressure 110/69 04/13/2024 3:26 PM CDT Pulse 105 04/13/2024 3:26 PM CDT Temperature 36.3 C (97.4 F) 04/13/2024 3:26 PM CDT Respiratory Rate 20 04/13/2024 3:26 PM CDT Oxygen Saturation 98% 04/13/2024 3:26 PM CDT Inhaled Oxygen Concentration - - Weight 65.8 kg (145 lb) 04/13/2024 3:41 PM CDT Height 167.6 cm (5' 6) 04/13/2024 3:41 PM CDT Body Mass Index 23.4 04/13/2024 3:41 PM CDT Plan of Treatment Health Maintenance Due Date Last Done Comments Tdap 1993 HIV for age 15-65 1997 Hepatitis C screening for ag e 18-79 2000 Hepatitis B series for 19+ ( 1 of 3 - 19+ 3-dose series) 2001 Pneumococcal series for age 6-49 (1 of 2 - PCV) 2001 Pap test for age 21-65 02/23/2014 1 (Completed outside of [facility]) Tetanus booster 06/26/2016 06/26/2006 (Comp leted outside of [facility]) Depression screening for age 12+ 04/14/2019 04/14/2018, 03/26/2018, 02/18/2018, Additional history exists BMI (ht and wt on same day) for age 18+ 11/01/2023 10/31/2022 COVID-19 vaccine series ( season) 2024 08/06/2021, 07/16/2021 Influenza Vaccine (Season Ended) 2025 Insurance [employer] [place] [place] [employer] [place] * Full Code (Latest Code Status on File) Date Activated Date Inactivated Comments 04/13/2024 6:14 PM 04/13/2024 10:10 PM Question Answer Comments Code Status Discussion: Reviewed Preferences * Full Code Date Activated Date Inactivated Comments 04/16/2018 4:36 PM 05/05/2018 9:26 AM * Full Code Date Activated Date Inactivated Comments 03/27/2018 1:28 AM 04/16/2018 4:27 PM * Full Code Date Activated Date Inactivated Comments 02/19/2018 1:42 AM 03/10/2018 7:55 PM * Full Code Date Activated Date Inactivated Comments 07/24/2017 6:04 PM 07/25/2017 4:02 PM Care Teams Bag Liner Relationship Specialty Start Date End Date Pcp, No . PCP - General 04/03/21
[2025-02-05 09:08] VITALS: BP 97/76; PULSE 122; RESP 22; TEMP 36.8; O2SAT 98; BMI 22.6
--- NOTE | 2025-02-05 09:31 | ED_ITS ---
HPI - General Adult General Chief complaint: Weakness Stated complaint: UTI, weak and feeling really bad Time Seen by Provider: 02/05/25 09:20 History of Present Illness HPI narrative: Patient is a 44-year-old insulin-dependent diabetic who also is an alcohol user regularly who presents not feeling well. She states that she was seen in the emergency room in [place] over the weekend but was treated and released. There has been a time over the last week that she has been out of her short- acting insulin but is able to continue take her Lantus. Patient feels like she is dehydrated she overall does not feel well she has had some nausea and vomiting but no overt pain. She has had no fevers no chills no night sweats. She feels like she is trying to eat and drink well but she is unable to keep up with her hydration needs at home. Related Data Previous Rx's ?Medication ?Instructions ?Recorded insulin aspart U-100 100 unit/mL 16 unit (0.16 mL) sub cut TIDWM 30 11/27/24 (3 mL) subcutaneous pen days #45 mL insulin glargine 100 unit/mL (3 30 unit (0.3 mL) subcu t BID 30 11/27/24 mL) subcutaneous pen (Lantus days #54 mL Solostar U-100 Insulin) magnesium oxide 400 mg (241.3 mg 400 mg PO BID 30 days #60 tabs 11/27/24 magnesium) tablet albuterol sulfate 90 mcg/actuation 2 inh inhalation Q6 H PRN #1 ea 02/05/25 breath activated powder inhaler potassium chloride 20 mEq 20 meq PO DAILY #30 tabs tablet,extended release(part/cryst) (Klor-Con M) Allergies Allergy/AdvReac Type Severity Reaction Status Date / Time No Known Drug Allergies Allergy Verified 11/26/24 20:38 Review of Systems Status of ROS: Reports: 10 or more systems reviewed and unremarkable except as noted in History and below [facility] Medical History (Updated 02/05/25 @ 10:56 by Newton Sierra MD) Asthma ?J45.909 - Unspecified asthma, uncomplicated (ICD-10) Hypokalemia ?E87.6 - Hypokalemia (ICD-10) Diabetes mellitus type 2 with complications, uncontrolled Insulin dependent diabetes mellitus Diabetes mellitus type 1 ?E10.9 - Type 1 diabetes mellitus without complications (ICD-10) Tobacco dependence ?F17.200 - Nicotine dependence, unspecified, uncomplicated (ICD-10) Sarcoidosis ?D86.9 - Sarcoidosis, unspecified (ICD-10) Hyperlipidemia ?E78.5 - Hyperlipidemia, unspecified (ICD-10) Neuropathy ?G62.9 - Polyneuropathy, unspecified (ICD-10) RLS (restless legs syndrome) ?G25.81 - Restless legs syndrome (ICD-10) PTSD (post-traumatic stress disorder) ?F43.10 - Post-traumatic stress disorder, unspecified (ICD-10) Panic disorder ?F41.0 - Panic disorder [episodic paroxysmal anxiety] (ICD-10) Eating disorder, unspecified ?F50.9 - Eating disorder, unspecified (ICD-10) Drug dependence ?F19.20 - Other psychoactive substance dependence, uncomplicated (ICD-10) Depression ?F32.A - Depression, unspecified (ICD-10) Borderline personality disorder ?F60.3 - Borderline personality disorder (ICD-10) Anxiety ?F41.9 - Anxiety disorder, unspecified (ICD-10) Alcohol use ?F10.90 - Alcohol use, unspecified, uncomplicated (ICD-10) ADD (attention deficit disorder) ?F98.8 - Other specified behavioral and emotional disorders with onset usually occurring in childhood and adolescence (ICD-10) Surgical History History of bilateral breast reduction surgery ?Z98.890 - Other specified postprocedural states (ICD-10) Social History What is your current living situation?: I presently have a place to live Problems where you live: no known problems Problems where you live details: none In the past 12 months, utilities in danger of being shut off: declined to answer In past 12 months, lack of transportation kept you from medical appts, meetings, work, or getting things needed for daily living: yes In the past 12 mos, have been you worried that your food would run out before you had money to buy more?: sometimes true In the past 12 mos, the food you bought just didn't last and you didn't have money to buy more?: sometimes true Smoking Status: Current every day smoker What tobacco products do you use: cigarettes Do you use any of these nicotine containing products: None Second hand tobacco smoke exposure: No How often do you have a drink containing alcohol: 2-3 times a week How many standard drinks containing alcohol do you have on a typical day: 3 or 4 How often do you have six or more drinks on one occasion: Never AUDIT-C Alcohol total score: 4 Non-prescribed substance use: denies use How often does anyone, including family, friends and others, physically hurt you : never How often does anyone, including family, friends and others, insult or talk down to you: never How often does anyone, including family, friends and others, threaten you with harm: never How often does anyone, including family, friends and others, scream or curse at you: never service: No Health Related Social Needs: food insecurity (Z59.41) and transportation insecurity (Z59.82) Exam Narrative: Exam Narrative: EXAM GENERAL: Patient appears Dehydrated in appearance. EYES: No scleral icterus. LYMPH: No supraclavicular or cervical lymphadenopathy. SKIN: Visible skin seen during exam normal or with benign process only. EXT: No dependent lower extremity pedal edema. HEART: Regular rate with mild tachycardia. LUNGS: Clear to auscultation bilaterally with no crackles or wheezes. ABD: Soft, non tender, non distended. PSYCH: Good eye contact, speech is not pressured. Const: Vital Signs, click to edit/add: Vital Signs - 24 hr 02/05/25 09:08 02/05/25 10:54 Temperature 98.2 F Pulse Rate [Pulse Oximeter] 122 H 100 Respiratory Rate 22 16 Blood Pressure [Ri ght Upper Arm] 97/76 Pulse Oximetry 98 98 Oxygen Delivery Me thod Room Air Room Air Course Course ED Course: Patient seen and examined. Normal saline given. CBC CMP lactate urinalysis pending. Vital Signs Vital signs: Initial Vital Signs Temperature 98.2 F 02/05/25 09:08 Temperature Source Temporal Artery Scan 02/05/25 09:08 Pulse Rate 122 H 02/05/25 09:08 Respiratory Rate 22 02/05/25 09:08 Blood Pressure 97/76 02/05/25 09:08 Blood Pressure Mean 83 02/05/25 09:08 Pulse Oximetry 98 02/05/25 09:08 Oxygen Delivery Method Room Air 02/05/25 09:08 Vital Signs Temperature 98.2 F 02/05/25 09:08 Pulse Rate 122 H 02/05/25 09:08 Respiratory Rate 22 02/05/25 09:08 Blood Pressure 97/76 02/05/25 09:08 Pulse Oximetry 98 02/05/25 09:08 Oxygen Delivery Method Room Air 02/05/25 09:08 Temperature 98.2 F 02/05/25 09:08 Pulse Rate 100 02/05/25 10:54 Respiratory Rate 16 02/05/25 10:54 Blood Pressure 97/76 02/05/25 09:08 Pulse Oximetry 98 02/05/25 10:54 Oxygen Delivery Method Room Air 02/05/25 10:54 Medical Decision Making MDM Narrative Medical decision making narrative: Patient is a 44-year-old woman with type 1 diabetes who comes in today feeling poorly. She is currently on antibiotics although she is not certain which antibiotic for UTI. Urine shows least partially treated UTI on UA. She does have hypokalemia but otherwise her labs look reasonable. She admits to significant anxiety. She has tried to cut back on her drinking recently. He is willing to try to improve her diet exercise at home and I did send in to her pharmacy oral potassium supplementation as well as refill on her albuterol inhaler and recommended close outpatient follow-up. Differential diagnosis includes but not limited to diabetic ketoacidosis hyperglycemia UTI gastroenteritis anxiety. Lab Data Labs: Lab Results 02/05/25 02/05/25 Range/Units 09:29 09:40 WBC 8.34 (4.50-11.00) K/uL RBC 4.75 (4.00-5.20) m/uL Hgb 14.7 (12.0-16.0) gm/dL Hct 39.9 (33.0-51.0) % MCV 84 (80-100) fL MCH 31 (26-34) pg MCHC 37 H (32-36) gm/dL RDW Coeff of Risa 11.8 (11.5-15.5) % Plt Count 377 (140-440) K/uL Neut % (Auto) 81.6 H (42.0-72.0) % Lymph % (Auto) 9.7 L (20-44) % [place] % (Auto) 5.3 (0.0-11.0) % Eos % (Auto) 3.2 (0.0-7.0) % Baso % (Auto) 0.1 (0.0-3.0) % Neut # (Auto) 6.80 (1.7-7.0) K/uL Lymph # (Auto) 0.80 L (0.90-2.90) K/uL [place] # (Auto) 0.40 (0.00-0.90) K/UL Eos # (Auto) 0.27 (0.00-0.50) K/uL Baso # (Auto) 0.01 (0.00-0.30) K/uL Abs Immat Gran (auto) 0.01 (0.00-0.30) K/uL Imm/Tot Granulo (auto) 0.1 % Sodium 133 L (135-149) mmol/L Potassium 3.0 L (3.6-5.1) mmol/L Chloride 96 (96-114) mmol/L Carbon Dioxide 25 (20-32) mmol/L Anion Gap 12 (7-15) mEq/L BUN 5 (5-24) mg/dL Creatinine 0.5 (0.5-1.5) mg/dL Estimated Creat Clear 137.21 Estimated GFR 120 ml/min Glucose 313 H (60-115) mg/dL Lactate 2.3 H (0.5-1.9) mmol/L Calcium 9.0 (8.4-10.6) mg/dL Total Bilirubin 0.8 (0.1-1.5) mg/dL AST 23 (12-35) U/L ALT 21 (4-35) U/L Alkaline Phosphatase 82 (40-150) U/L Troponin I < 0.01 (0.01-0.04) ng/mL Total Protein 6.9 (6.0-8.3) g/dL Albumin 4.2 (3.3-5.0) g/dL Urine Color Yellow (Yellow) Urine Appearance Clear (Clear) Urine pH 5.5 (5.0-8.5) Ur Specific [place] <= 1.005 (1.000-1.030) Urine Protein Negative (Negative) Urine Glucose (UA) 2+ A (Negative) Urine Ketones 4+ A (Negative) Urine Blood 2+ A (Negative) Urine Nitrite Negative (Negative) Urine Bilirubin Negative (Negative) Urine Urobilinogen 0.2 (0.2-1.0) Ur Leukocyte Esterase Negative (Negative) Urine RBC 2-5 A (0-2) Urine WBC 5-10 A (0-5) Ur Squamous Epith Cells Few (None-Few) Urine Bacteria Few A (None) Discharge Plan Discharge Clinical Impression: Dehydration Patient Disposition: Home, Self-Care Condition: Stable Instructions: Dehydration (ED) Additional Instructions: Potassium as directed Advanced diet activity Continue current medications. Follow-up with your doctor as needed. Activity Level: No Restrictions Discharge Diet: Regular Prescriptions: New potassium chloride [Klor-Con M20] 20 mEq tablet,ER particles/crystals 20 meq PO DAILY Qty: 30 3RF albuterol sulfate 90 mcg/actuation aerosol powdr breath activated 2 inh inhalation Q6H PRNQty: 1 0RF No Action magnesium oxide 400 mg (241.3 mg magnesium) tablet 400 mg PO BID 30 Days Qty: 60 0RF insulin aspart U-100 100 unit/mL (3 mL) insulin pen 16 unit subcut TIDWM 30 Days Qty: 45 1RF insulin glargine [Lantus Solostar U-100 Insulin] 100 unit/mL (3 mL) insulin pen 30 unit subcut BID 30 Days Qty: 54 1RF Follow Up/Referrals: Provider,Not a Local [Primary Care Provider, Family Practice] Stand Alone Forms: MyHealth Info Instructions
[2025-02-05 09:38] LABS: Appearance Urine Clear (Clear); Bilirubin Urine Negative (Negative); Blood Urine 2+ (Negative); Color Urine Yellow (Yellow); Glucose Urine 2+ (Negative); Ketones Urine 4+ (Negative); Leukocyte Esterase Urine Negative (Negative); Nitrite Urine Negative (Negative); Protein Urine Negative (Negative); Specific Gravity Urine <= 1.005 (1.000-1.030); Urobilinogen Urine 0.2 (0.2-1.0); pH Urine 5.5 (5.0-8.5)
[2025-02-05 09:45] LABS: Lactate* 2.3 mmol/L (0.5-1.9)
[2025-02-05 09:48] LABS: Basophils Absolute Auto 0.01 K/uL (0.00-0.30); Basophils Percent Auto 0.1 % (0.0-3.0); Eosinophils Absolute Auto 0.27 K/uL (0.00-0.50); Eosinophils Percent Auto 3.2 % (0.0-7.0); Hematocrit 39.9 % (33.0-51.0); Hemoglobin* 14.7 gm/dL (12.0-16.0); Immature Granulocytes Abs Auto 0.01 K/uL (0.00-0.30); Immature Granulocytes Pct Auto 0.1 %; Lymphocytes Percent Auto 9.7 % (20-44); Mean Corpuscular HGB Conc 37 gm/dL (32-36); Mean Corpuscular Hemoglobin 31 pg (26-34); Mean Corpuscular Volume 84 fL (80-100); Monocytes Percent Auto 5.3 % (0.0-11.0); Neutrophils Percent Auto 81.6 % (42.0-72.0); Platelet Count* 377 K/uL (140-440); RDW Coefficient of Variation % 11.8 % (11.5-15.5); Red Blood Count 4.75 m/uL (4.00-5.20); White Blood Count* 8.34 K/uL (4.50-11.00)
[2025-02-05 09:49] LABS: Slide Review Reflex No
[2025-02-05 09:54] LABS: Bacteria Urine Few; Squamous Epithelial Cell Urine Few (None-Few)
[2025-02-05 10:04] LABS: Chloride* 96 mmol/L (96-114)
[2025-02-05 10:05] LABS: Albumin* 4.2 g/dL (3.3-5.0); Sodium* 133 mmol/L (135-149)
[2025-02-05 10:07] LABS: Blood Urea Nitrogen* 5 mg/dL (5-24); Creatinine* 0.5 mg/dL (0.5-1.5); Est. Creatinine Clearance* 137.21; Estimated Glomerular Filt Rate 120 ml/min
[2025-02-05 10:08] LABS: Alanine Aminotransferase* 21 U/L (4-35); Alkaline Phosphatase* 82 U/L (40-150); Anion Gap 12 mEq/L (7-15); Aspartate Amino Transferase* 23 U/L (12-35); Bilirubin Total* 0.8 mg/dL (0.1-1.5); Carbon Dioxide* 25 mmol/L (20-32); Glucose* 313 mg/dL (60-115); Total Protein* 6.9 g/dL (6.0-8.3)
[2025-02-05 10:33] LABS: Troponin I* < 0.01 ng/mL (0.01-0.04)
[2025-02-05 10:54] VITALS: PULSE 100; RESP 16; O2SAT 98
== END 2025-02-05 11:04 | disposition home or self-care (01) ==
PROVIDERS: Emergency Provider Internal Medicine
DX: E86.0 Dehydration (principal); R11.2 Nausea with vomiting, unspecified; E11.9 Type 2 diabetes mellitus without complications; Z79.4 Long term (current) use of insulin
CPT/HCPCS: 36415; 80053; 81001; 81003; 83605; 84484; 85025; 87086; 93005; 96374; 99283; 99284

== ENCOUNTER 2025-05-30 22:58 | Emergency (ER) | payer BC, SELFPAY ==
--- OUTSIDE RECORDS SUMMARY | 2009-02-18 17:37 | XMS_ITS | Encounter Summary ---
Author Organization [place] Address [address] [facility] [place] [address] Care Team Providers Care Combination Saw Operator Name Role Phone Sandeep Clancy MD Primary Care Provider [phone] Elly Araya MD Unavailable [phone] Encounter Details Date Type Department Care Team (Late st Contact Info) Description 02/18/2009 5:37 PM CDT [facility] in 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
--- OUTSIDE RECORDS SUMMARY | 2010-04-04 19:04 | XMS_ITS | Encounter Summary ---
Author Organization [place] Address [address] [facility] [place] [address] Care Team Providers Care Retail Presentation Specialist Name Role Phone Sandeep Clancy MD Primary Care Provider [phone] Elly Araya MD Unavailable [phone] Encounter Details Date Type Department Care Team (Late st Contact Info) Description 04/04/2010 7:04 PM CDT [facility] in [facility] [address] [place] [phone] Wolfgang Greer MD [facility] [address] [facility] [address] [place], [place] [id number] Social History Tobacco Use Types Packs/Day Years Used Date Smoking Tobacco: Every Day Cigarettes Alcohol Use Standard Drinks/Week Comments Yes 0 (1 standard drink = 0.6 oz pur e alcohol) has been drinking daily Comments No Sex and Gender Information Value Date Recorded Sex Assigned at Not on file 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 Gender Identity Not on file Sexual Orientation Not on file Occupation Industry Job Start Date Job End Date homemaker Not on file Not on file Not on file documented as of this encounter Plan of Treatment Not on file documented as of this encounter Visit Diagnoses Not on filedocumented in this encounter Care Teams Retail Presentation Specialist Relationship Specialty Start Date End Date Sandeep Clancy MD XX [place] [address] PCP - General 08/20/07 07/01/17 El[place] [address] PCP - Obstetrics/Gynecology 07/26/05 1 08/29/14 documented as of this encounter
--- OUTSIDE RECORDS SUMMARY | 2012-06-01 19:00 | XMS_ITS | Continuity of Care Document ---
Author Organization [facility] Address [address] [address] [place] [address] Phone Care Team Providers Care Game Author Name Role Phone Monica Live MD Unavailable Unavailable Procedures Procedure Date Init Hosp-da E&m Low Severity 2 Advance Directives Directive Yes / No Effective Date File Name No Information Encounters Encounter Description Practice Location Reason(s) For Visit Diagnoses Date Provider Providers Copied on Encounter Init [facility]osp[facility] Sever[facility], [address] [address], [place], [place], [id number], [place] tel:[phone] [facility] No Information 2 Maria T Escobedo. [address] [facility], [facility] [address], [place], [place], [id number] , [place]. tel:[phone] Family History Family Member Type Diagnosis Age At Onset No Information Payers Payer name Insurance type Covered constitution party ID Authoriza tion(s) No Information Social History [...]
[2025-05-30 23:00] VITALS: O2SAT 99
--- OUTSIDE RECORDS SUMMARY | 2025-05-30 23:01 | XMS_ITS | Clinical Summary ---
Author Organization [facility] Address [address] [place] [address] Care Team Providers Care Knitted Goods Shaper Name Role Phone Elsewhere, Pcp Primary Care Provider Unavailabl e Source Comments Patient records contain information from all sites at [facility]. For routine questions regarding patient records, call [phone] during business hours, M-F 8:00 AM - 5:00 PM Central Time. Record requests for emergency care only can be directed to [phone] at any time.[facility] Allergies Active Allergy Reactions Criticality Noted [...] a day. 100 mL 3 01/01 Discontinued Active Problems Problem Noted Date Diagnosed [...] in hospital 09/15/11 Eating Disorder 05/05/2010 04/29/2019 Immunizations Immunization Administration Dates Next Due DTP [...] Date Smoking Tobacco: Every Day Cigarettes 1 27.7 Started: 09/03/1997 Smokeless Tobacco: Never Tobacco Cessation:Ready [...] by your partner or ex-partner? No 08/14/2021 Hunger Vital Sign Answer Date Recorded [...] place to sleep or slept in a skilled nursing (including now)? Yes 08/14/2021 Depression Answer Date Recor ded PHQ-9 Total Score (max 27) 20 01/04 Education Answer Date Recorded What is the highest level of school you have completed or the highest degree you have received? Some college, no degree 04/29/2019 Comments No Sex and Gender Information Value Date Recorded Sex Assigned at Female 08/14/2021 9:10 AM CHARGE AUTHORIZER Legal Sex Female 3:04 AM CHARGE AUTHORIZER Gender Identity Female 08/14/2021 9:10 AM CHARGE AUTHORIZER Sexual Orientation Straight 08/14/2021 9: 10 AM CHARGE AUTHORIZER Last Filed Vital Signs Vital Sign Reading [...] Health Maintenance Due Date Last Done Comments Depression Monitoring (PHQ-9) 1982 Hepatitis C Screening 1982 Mammogram 1982 Office Visit for Blood Press ure Check / Re-check 1982 Hepatitis B Vaccines (1 of 3 - 19+ 3-dose series) 2001 HPV Vaccines (1 - 3-dose SCD M series) 2009 Pneumococcal vaccine (0-49 y ears) (2 of 2 - PCV) 07/04/2017 07/04/2016 Diabetic Office Visit with F oot Exam 08/30/2017 08/30/2016 Urine Albumin 09/15/2019 09/15/2018, 06/19/2016 DTaP,Tdap,and Td Vaccines (7 - Td or Tdap) 05/11/2021 05/11/2011, 02/07/2011, 03/18/1984, Additional history exists Diabetic Eye Exam 05/30/2022 05/30/2021 Cervical/Vaginal Cancer Screening 07/09/2022 07/09/2017, 02/22/2010, 06/09/2009 (Performed elsewhere) Diabetes Education 02/02/2023 02/02/2022, 08/30/2016 Lipid (Cholesterol) Screening 03/10/2023, 07/16/2021, 09/15/2018, Additional history exists Hemoglobin A1C 07/14/2024 04/13/2024, 03/3 08/2023, 06/07/2023, Additional history exists Depression Monitoring (PHQ-9 for quality tracking) 08/26/2024 COVID-19 Vaccine (3 - 2024-2 6 season) 2025 08/06/2021, 07/16/2021 Influenza Vaccine (#1) 2025 , 08/25/2020, 09/10/2018, Additional history exists Creatinine Level (Kidney Fun ction Test) 01/31/2026 01/31/2025, 01/31/2025, 11/28/2024, Additional history exists IPV Vaccines Completed 03/18/1984, 03/1983, 1982, Additional history exists Glucose Test for Med Monitoring Discontinued 01/31/2025, 01/31/2025, 01/31/2025, Additional history exists Procedures Procedure Name Priority Date/Time Associated Diagnosis Comments BASIC METABOLIC PANEL, S/P STAT 01/31/2025 6:30 PM CDT GLUCOSE POCT, B Routine 01/31/2025 6:18 PM CDT HEMOGLOBIN A1C, B STAT 11/24/2023 9:2 5 PM CDT LIPID PANEL, S Routine 03/10/2022 3:52 AM CDT ALBUMIN, RANDOM, U Routine 09/15/2018 10 :15 AM CHARGE AUTHORIZER Diabetes Mellitus Type 2 (HCC) EXT THINPREP W/HPV CO-TEST SCREEN Routine 07/09/2017 from Last 3 Months or Most Recently Relevant to Health Maintenance Results * (ABNORMAL) Basic Metabolic Panel (01/31/2025 6:30 [...] Le D.O. LAB BLOOD ADD-ON Final Result [facility] [address] [place] [address], [facility] [place] [address] [address] [place] [address] * (ABNORMAL) Glucose, POCT (01/31/2025 6:18 PM CDT) Glucose, POCT, B 455(H) 70 - 140 mg/dL 01/31/2025 6:18 PM CDT NPRG Blood 01/31/2025 6:18 PM CDT 01/31/2025 6:31 PM CDT us Generic Rals LAB POCT ORDERABLES-MANUAL Final Result [facility] [address] [place] [address], [facility] [place] [address] [address] [place] [address] * (ABNORMAL) Hemoglobin A1c (11/24/2023 9:25 PM [...] M.D., M.B.A. LAB BLOOD ADD-ON Final Result [facility] [address] [place] [address], [facility] [place] [address] [address] [place] [address] * (ABNORMAL) Lipid Panel (03/10/2022 3:52 AM [...] Ch.B. LAB BLOOD ADD-[place] [address], [facility] [place] [address] * (ABNORMAL) Microalbumin, Random, Urine (09/15/2018 10:15 AM CHARGE AUTHORIZER) Microalbumin 127.2 mg/L 09/15/2018 10:54 AM CHARGE AUTHORIZER [facility] Creatinine 199 mg/dL 09/15/2018 10:54 AM CHARGE AUTHORIZER [facility] Albumin/Creatinin e Ratio 64(H) <25 mg/g 09/15/2018 10:54 AM CHARGE AUTHORIZER [facility] Urine (Urine, Voided) 09/15/2018 10:15 AM CHARGE AUTHORIZER 09/15/2018 10:16 AM CHARGE AUTHORIZER us Luann Milton APRN, C.N.P., D.N.P. LAB URINE O RDERABLES Final Result [facility] [id number] [address], [facility] * EXT ThinPrep w/HPV Co-Test Screen (07/09/2017) EXT ThinPrep w/HPV Co-Test Screen Normal - See Scanned Report for Details Normal - See Scanned Report for Details, HIMS - Report Received and Scanned Comment:See Care Everywhere for results: Thin Prep Vial (Cervix/Endocervi x) 07/09/2017 Impressions Irma Crandall - 07/09/2017 Performed at [address] [address] CLIA number [id number] Specimen Collected: 07/09/17 14:31 Last Resulted: 07/09/17 14:32 Received From: [facility] Result Received: 08/17/19 09:37 us Historical Provider LAB PAP PATHDX ORDERABLES Fi nal Result from Last 3 Months or Most Recently Relevant to Health Maintenance Insurance [facility] [place] [address] Advance Directives For more information, please contact: [phone] * Full Code (Latest Code Status on [...] Due to: Not medically appropriate Care Teams Knitted Goods Shaper Relationship Specialty Start Date End Date Elsewhere, Pcp PCP - General Internal Medicine 02/06/22
--- OUTSIDE RECORDS SUMMARY | 2025-05-30 23:01 | XMS_ITS | Encounter Summary ---
Author Organization [place] Address [address] [facility] [place] [address] Care Team Providers Care School Coordinator Name Role Phone Sandeep Clancy MD Primary Care Provider [phone] Rafat Helton MD Primary Care Provider [phone] Frw, None Primary Care Provider Unavailabl Elly Corral MD Unavailable [phone] Misael Zuleta MD Unavailable Unavailable System, Provider Not In Primary Care Provider Un available Reason for Visit * Reason Onset Date Comments Refill Request 06/07/2005 [place] 5 Encounter Details Date Type Department Care Team (Late st Contact Info) Description 06/07/2005 Refill [facility] [address] [place] [phone] Misael Zuleta MD Refill Request (Adderahl 5) [...] on file Legal Sex Female 4:14 AM CARPENTER'S HELPER Gender Identity Not on file Sexual Orientation Not on file Occupation Industry Job Start Date Job End Date homemaker Not on file Not on file Not on file documented as of this encounter Miscellaneous Notes * Telephone Encounter - Leydi Perales - 06/07/2005 1:57 PM CDT She left voice message woul like to picking machine operator helper [place] a little early as has wedding to go to and will be out of town until later next week.WOuld like to get it today,also asked if could be sent to pharmacy if possible so didn't have to come all the way here. [phone]. documented in this encounter Plan of Treatment Not on file documented as of this encounter Visit Diagnoses Diagnosis Adjustment disorder with mixed anxiety and depressed mood- Primary documented in this encounter Care Teams School Coordinator Relationship Specialty Start Date End Date Sandeep lCancy MD XX NO INFO FOUND XX [place] [address] PCP - General 08/20/07 07/01/17 Rafat Helton MD XX NO INFO FOUND XX [place] [address] PCP - General 03/25/06 08/19/07 Frw, None PCP - General 09/17/00 03/24/06 El[place]ray[place] [address] PCP - Obstetrics/Gynecology 07/26/05 1 08/29/14 Misael Zuleta MD PCP - Obstetrics/Gynecology 09/17/0006/28 System, Provider Not In PCP - General Clinic 07/02/17 documented as of this encounter
--- OUTSIDE RECORDS SUMMARY | 2025-05-30 23:01 | XMS_ITS | Clinical Summary ---
Author Organization [place] Address [address] [facility] [place] [address] Care Team Providers Care Buildings And Grounds Director Name Role Phone System, Provider Not In [...] on file Legal Sex Female 4:14 AM BAGGAGE PORTER Gender Identity Not on file Sexual Orientation Not on file Occupation Industry Job Start Date Job End Date homemaker Not on file Not on file Not on file Last Filed Vital Signs Vital Sign Reading Time Taken Comments Blood Pressure 128/108 07/11/2024 5:52 PM BAGGAGE PORTER Pulse 110 07/11/2024 5:37 PM BAGGAGE PORTER Temperature 35.9 C (96.6 F) 07/11/2024 4:03 PM BAGGAGE PORTER Respiratory Rate 29 07/11/2024 5:37 PM BAGGAGE PORTER Oxygen Saturation 99% 07/11/2024 5:37 PM BAGGAGE PORTER Inhaled Oxygen Concentration - - Weight 67.4 kg (148 lb 9.4 oz) 07/11/2024 4:03 P M BAGGAGE PORTER Height 170.2 cm (5' 7) 07/11/2024 4:03 PM BAGGAGE PORTER Body Mass Index 23.27 07/11/2024 4:03 PM BAGGAGE PORTER Plan of Treatment Health Maintenance Due Date [...] 02/07/2011, 03/18/1984, Additional history exists COVID-19 VACCINE (2024- season) 2025 08/06/2021, 07/16/2021 INFLUENZA VACCINE (#1) 2025 , 08/25/2020, 09/10/2018, Additional history exists BMP 07/11/2025 07/11/2024, 10/25, 04/04/2010 ZOSTER VACCINE (1 of 2) 2032 HIV SCREENING Completed 12/28/2004 HPV VACCINE (No Doses Required) Completed MENINGITIS VACCINE Aged Out No longer eligible based on patient's age to complete this topic Procedures Procedure Name Priority Date/Time Associated Diagnosis Comments BASIC METABOLIC PANEL STAT 07/11/2024 4:21 PM BAGGAGE PORTER HCL PAP THIN LAYER DIAGNOSTIC Routine 02/22/2010 12:00 AM CDT LGSIL (Low Grade Squamous Intraepithelial Lesion) on Pap Smear HCL HIV 1 & 2 ANTIBODY Routine 12/28/2004 2:33 PM CDT Supervis Other Normal Preg from Last 3 Months or Most Recently Relevant to Health Maintenance Results * (ABNORMAL) Basic metabolic panel (07/11/2024 4:21 PM BAGGAGE PORTER) Sodium 130(L) 135 - 145 mmol/L 07/11/2024 5:07 PM [facility] Potassium 3.5 3.4 - 5.3 mmol/L 07/11/2024 5:07 PM [facility] Chloride 95(L) 98 - 107 mmol/L 07/11/2024 5:07 PM [facility] Carbon Dioxide (CO2) 18(L) 22 - 29 mmol/L 07/11/2024 5:07 PM [facility] Anion Gap 17(H) 7 - 15 mmol/L 07/11/2024 5:07 PM [facility] Urea Nitrogen 10.5 6.0 - 20.0 mg/dL 07/11/2024 5:07 PM [facility] Creatinine 0.53 0.51 - 0.95 mg/dL 07/11/2024 5:07 PM [facility] GFR Estimate >90 >60 mL/min/1.7 3m2 07/11/2024 5:07 PM [facility] Comment:eGFR calculated usin 2020 CKD-EPI equation. Calcium 9.4 8.8 - 10.4 mg/dL 07/11/2024 5:07 PM [facility] Comment:Reference intervals for this test were updated on 03/10/2024 to reflect our healthy population more accurately. There may be differences in the flagging of prior results with similar values performed with this method. Those prior results can be interpreted in the context of the updated reference intervals. Glucose 502(HH) 70 - 99 mg/dL 07/11/2024 5:07 PM [facility] Blood BLOOD SPECIMEN / Unknown Venipuncture / Unknown 07/11/2024 4:21 PM BAGGAGE PORTER 07/11/2024 4:26 PM BAGGAGE PORTER us Rafi Rosado MD LAB - BLOOD ORDERABLES Final Result [facility] [address] Lab (1st floor, no room number) [place] [address], [facility] * (ABNORMAL) A THIN LAYER, DIAGNOSTIC PAP (02/22/2010 12:00 AM CDT) PAP ASC-US(A) COPATH Copath Report Patient Name: DANA COSTELLO MR#: [id number] Specimen #: [id number] Collected: 02/22/2010 Received: 02/23/2010 Reported: 03/01/2010 12:44 [...] Earle Wetzel M.D. Processed and screened at [facility] CLINICAL HISTORY: LMP: 02/09/2010 Previous abnormal pap: LSIL, 09/21/08 Previous normal pap: NIL, 08/31/05 Previous ASC-US: 12/28/04 Previous abnormal pap: h/o BRENDAN-2, Papanicolaou Test Limitations: Cervical cytology is a screening test with limited sensitivity; regular screening is critical for cancer prevention; Pap tests are primarily effective for the diagnosis/preventi on of squamous cell carcinoma, not adenocarcinomas or other cancers. TESTING LAB LOCATION: [address] [place] [address] COLLECTION SITE: Client: [facility] Location: [facility] (W) COPATH 02/22/2010 02/23/2010 1:1 4 PM CDT us Heydi Araya MD LABORATORY Final Result COPATH * HIV Screening (12/28/2004 2:33 PM CDT) HIV 1&[address] [facility] 12/28/2004 2:33 PM CDT 12/28/2004 2:38 PM CDT us Sharmila Simpson NP LABORATORY Final Result [facility] [address] [place] [address] from Last 3 Months or Most Recently Relevant to Health Maintenance [place] Care Teams Buildings And Grounds Director Relationship Specialty Start Date End Date System, Provider Not In PCP - General Clinic 07/02/17
--- OUTSIDE RECORDS SUMMARY | 2025-05-30 23:01 | XMS_ITS | Clinical Summary ---
Author Organization [facility] Address [address] [place] [address] Care Team Providers Care Newspaper Photojournalist Name Role Phone Pcp, No Primary Care [...] a complete record from that organization. Insulin [place], Disposable, (KIM PEN NEEDLE) 32 gauge x [...] breath). 18 g 05/04/20 18 Active Insulin [place], Disposable, 31 gauge x 16Indications:D M (diabetes [...] on file and signed 08/06/2011. Designated pharmacy: [facility] Prescribing physician: Linette Kent MD Diagnosis: Anxiety [...] Date Smoking Tobacco: Every Day Cigarettes 1 22.3 Started: 02/20/2003 Passive Smoke Exposure: Never Smokeless [...] on file Legal Sex Female 6:16 AM AUTO PARKER Gender Identity Not on file Sexual Orientation [...] Health Maintenance Due Date Last Done Comments HIV for age 15-65 1997 Hepatitis C screening for ag e 18-79 2000 Hepatitis B series for 19+ ( 1 of 3 - 19+ 3-dose series) 2001 Pneumococcal series for age 6-49 (1 of 2 - PCV) 2001 HPV series for age 9-45 (1 - 3-dose SCDM series) 2009 Pap test for age 21-65 02/23/2014 1 (Completed outside of [facility]) Tetanus booster 06/26/2016 06/26/2006 (Comp leted outside of [facility]) Depression screening for age 12+ 04/14/2019 04/14/2018, 03/26/2018, 02/18/2018, Additional history exists BMI (ht and wt on same day) for age 18+ 11/01/2023 10/31/2022 COVID-19 vaccine series ( - 2024- season) 2025 08/06/2021, 07/16/2021 Influenza Vaccine (#1) 2025 RSV vaccine for adults or (1 - 1-dose 75+ series) 2057 Insurance [facility] Advance Directives * Full Code (Latest Code [...] 6:04 PM 07/25/2017 4:02 PM Care Teams Newspaper Photojournalist Relationship Specialty Start Date End Date Pcp, No . PCP - General 04/03/21
--- OUTSIDE RECORDS SUMMARY | 2025-05-30 23:01 | XMS_ITS | Encounter Summary ---
Author Organization [place] Address [address] [facility] [place] [address] Care Team Providers Care Perch Mender Name Role Phone Sandeep Clancy MD Primary Care Provider [phone] Rafat Helton MD Primary Care Provider [phone] Frw, None Primary Care Provider Unavailabl e Elly Araya MD Unavailable [phone] Misael Zuleta MD Unavailable Unavailable System, Provider Not In Primary Care Provider Un available Encounter Details Date Type Department Care Team (Late st Contact Info) Description 07/18/2005 [facility] [place] Inpatient Dept [address] [place] [address] Frw, Inpatient Provider Social History Tobacco Use Types Packs/Day Years Used Date Smoking Tobacco: Every Day Cigarettes Alcohol Use Standard Drinks/Week Comments Yes 0 (1 standard drink = 0.6 oz pur e alcohol) has been drinking daily Comments No Sex and Gender Information Value Date Recorded Sex Assigned at Not on file Legal Sex Female 4:14 AM PLANT AND MACHINERY VALUER Gender Identity Not on file Sexual Orientation [...] reduced. Shoulders and body delivered easily thereafter. was placed on maternal abdomen and cord [...] end of the procedure both mother and infant were stable, fundus was firm and flow was minimal. Sponge, needle and instrument counts were correct prior to and after the delivery. Elly MADRIGAL/jordan cc: T AND MACHINERY VALUER documented in this encounter Plan of Treatment Not on file documented as of this encounter Visit Diagnoses Not on filedocumented in this encounter Care Teams Perch Mender Relationship Specialty Start Date End Date Sandeep Clancy MD XX NO INFO FOUND XX [place] [address] PCP - General 08/20/07 07/01/17 Rafat Helton MD XX NO INFO FOUND XX [place] [address] PCP - General 03/25/06 08/19/07 Frw, None PCP - General 09/17/00 03/24/06 Elly Araya MD [place] [address] PCP - Obstetrics/Gynecology 07/26/05 1 08/29/14 Misael Zuleta MD PCP - Obstetrics/Gynecology 09/17/0006/28 System, Provider Not In PCP - General Clinic 07/02/17 documented as of this encounter
--- OUTSIDE RECORDS SUMMARY | 2025-05-30 23:01 | XMS_ITS | Encounter Summary ---
Author Organization [place] Address [address] [facility] [place] [address] Care Team Providers Care Seasoner Hand Name Role Phone JakobepSandeep rico MD Primary Care Provider [phone] Rafat Helton MD Primary Care Provider [phone] Frw, None Primary Care Provider Unavailabl e Elly Araya MD Unavailable [phone] Misael Zuleta MD Unavailable Unavailable System, Provider Not In Primary Care Provider Un available Encounter Details Date Type Department Care Team (Late st Contact Info) Description 07/19/2005 [facility] [place] PHOSPHORIC ACID OPERATOR [address] [place] [address] Misael Zuleta MD Social History Tobacco Use Types Packs/Day Years Used Date Smoking Tobacco: Every Day Cigarettes Alcohol Use Standard Drinks/Week Comments Yes 0 (1 standard drink = 0.6 oz pur e alcohol) has been drinking daily Comments No Sex and Gender Information Value Date Recorded Sex Assigned at Not on file Legal Sex Female 4:14 AM CONTENT DEVELOPMENT SPECIALIST Gender Identity Not on file Sexual Orientation [...] negative GI: negative BREAST: negative : negative SKATE MAKER: CV: negative PULMONARY: as above MUSCULOSKELETAL: negative [...] wheezes Plan: anticipate vaginal delivery use inhaler ENT DEVELOPMENT SPECIALIST documented in this encounter Plan of Treatment Not on file documented as of this encounter Visit Diagnoses Not on filedocumented in this encounter Care Teams Seasoner Hand Relationship Specialty Start Date End Date Sandeep Clancy MD XX NO INFO FOUND XX [place] [address] PCP - General 08/20/07 07/01/17 Rafat Helton MD XX NO INFO FOUND XX [place] [address] PCP - General 03/25/06 08/19/07 Frw, None PCP - General 09/17/00 03/24/06 Elly [place]raya MD [place] [address] PCP - Obstetrics/Gynecology 07/26/05 1 08/29/14 Misael Zuleta MD PCP - Obstetrics/Gynecology 09/17/0006/28 System, Provider Not In PCP - General Clinic 07/02/17 documented as of this encounter
[2025-05-30 23:05] VITALS: BP 137/115; PULSE 118; RESP 22; TEMP 36.7; O2SAT 99; BMI 22.6
[2025-05-30 23:14] LABS: HCO3 VBG 25 mmol/L (21-28); Lactate* 3.1 mmol/L (0.5-1.9); PCO2 VBG 44 mmHG (40-50); PO2 VBG < 30.1 mmHG (25-47); pH VBG 7.359 (7.32-7.43)
[2025-05-30 23:17] LABS: Hematocrit* 45.4 % (33.0-51.0); Hemoglobin* 16.8 gm/dL (12.0-16.0); Immature Granulocytes Abs Auto 0.07 K/uL (0.00-0.30); Immature Granulocytes Pct Auto 0.9 %; Lymphocytes Absolute Auto 2.53 K/uL (0.90-2.90); Mean Corpuscular HGB Conc 37 gm/dL (32-36); Mean Corpuscular Hemoglobin 32 pg (26-34); Mean Corpuscular Volume 86 fL (80-100); RDW Coefficient of Variation % 11.9 % (11.5-15.5); Red Blood Count* 5.29 m/uL (4.00-5.20); White Blood Count* 8.20 K/uL (4.50-11.00)
[2025-05-30 23:19] LABS: Appearance Urine Clear (Clear)
[2025-05-30 23:20] LABS: Slide Review Reflex No
--- NOTE | 2025-05-30 23:24 | ED.GENADULT ---
HPI - General Adult General Chief complaint: Diabetic Related Problem Stated complaint: out of insulin Time Seen by Provider: 05/30/25 23:14 History of Present Illness HPI narrative: This 45-year-old female comes in with anxiety and reports that she took cocaine about an hour prior to arrival here. She does arrive with increased heart rate. She does not report any chest pain. She has type 2 diabetes and did not have insulin with her recently. She states that she works up at [employer] and left her insulin up there. She was post to go back to work there today but it got canceled. She is scheduled to be there tomorrow. A glucometer reading showed a glucose greater than 600. Related Data Previous Rx's ?Medication ?Instructions ?Recorded insulin aspart U-100 100 unit/mL 16 unit (0.16 mL) subcut TIDWM 30 11/27/24 (3 mL) subcutaneous pen days #45 mL insulin glargine 100 unit/mL (3 30 unit (0.3 mL) subcut BID 30 11/27/24 mL) subcutaneous pen (Lantus days #54 mL Solostar U-100 Insulin) magnesium oxide 400 mg (241.3 mg 400 mg PO BID 30 days #60 tabs 11/27/24 magnesium) tablet albuterol sulfate 90 mcg/actuation 2 inh inhalation Q6H PRN #1 ea 02/05/25 breath activated powder inhaler potassium chloride 20 mEq 20 meq PO DAILY #30 tabs 02/05/25 tablet,extended release(part/cryst) (Klor-Con M) Allergies Allergy/AdvReac Type Severity Reaction Status Date / Time No Known Drug Allergies Allergy Verified 05/30/25 23:07 Review of Systems Status of ROS: Reports: 10 or more systems reviewed and unremarkable except as noted in History and below Narrative: Constitutional: No fevers, no weight gain or loss. Eyes: No discharge. No vision changes. HENT: No congestion, no sore throat, no ear pain. Cardiovascular: No chest pain, no palpitations. Respiratory: No shortness of breath, no wheezes, no cough. Gastrointestinal: No abdominal pain, no vomiting, no diarrhea. Genitourinary: No dysuria, no hematuria. Musculoskeletal: Normal range of motion. Skin: No rashes, no pruritis. Neurological: No dizziness, weakness, sensory change, speech change. Endo/Heme/Allergies: No bruising or bleeding. No polydipsia. Pysch: no suicidality, no insomnia. She reports anxiety symptoms. All other systems reviewed and are negative. [facility] Medical History (Updated 05/30/25 @ 23:58 by Wolfgang Greer MD) Asthma ?J45.909 - Unspecified asthma, uncomplicated (ICD-10) Hypokalemia ?E87.6 - Hypokalemia (ICD-10) Diabetes mellitus type 2 with complications, uncontrolled Insulin dependent diabetes mellitus Diabetes mellitus type 1 ?E10.9 - Type 1 diabetes mellitus without complications (ICD-10) Tobacco dependence ?F17.200 - Nicotine dependence, unspecified, uncomplicated (ICD-10) Sarcoidosis ?D86.9 - Sarcoidosis, unspecified (ICD-10) Hyperlipidemia ?E78.5 - Hyperlipidemia, unspecified (ICD-10) Neuropathy ?G62.9 - Polyneuropathy, unspecified (ICD-10) RLS (restless legs syndrome) ?G25.81 - Restless legs syndrome (ICD-10) PTSD (post-traumatic stress disorder) ?F43.10 - Post-traumatic stress disorder, unspecified (ICD-10) Panic disorder ?F41.0 - Panic disorder [episodic paroxysmal anxiety] (ICD-10) Eating disorder, unspecified ?F50.9 - Eating disorder, unspecified (ICD-10) Drug dependence ?F19.20 - Other psychoactive substance dependence, uncomplicated (ICD-10) Depression ?F32.A - Depression, unspecified (ICD-10) Borderline personality disorder ?F60.3 - Borderline personality disorder (ICD-10) Anxiety ?F41.9 - Anxiety disorder, unspecified (ICD-10) Alcohol use ?F10.90 - Alcohol use, unspecified, uncomplicated (ICD-10) ADD (attention deficit disorder) ?F98.8 - Other specified behavioral and emotional disorders with onset usually occurring in childhood and adolescence (ICD-10) Surgical History History of bilateral breast reduction surgery ?Z98.890 - Other specified postprocedural states (ICD-10) Social History What is your current living situation?: I presently have a place to live Problems where you live: no known problems Problems where you live details: none In the past 12 months, utilities in danger of being shut off: declined to answer In past 12 months, lack of transportation kept you from medical appts, meetings, work, or getting things needed for daily living: yes In the past 12 mos, have been you worried that your food would run out before you had money to buy more?: sometimes true In the past 12 mos, the food you bought just didn't last and you didn't have money to buy more?: sometimes true Smoking Status: Current every day smoker What tobacco products do you use: cigarettes Do you use any of these nicotine containing products: None Second hand tobacco smoke exposure: No How often do you have a drink containing alcohol: 2-3 times a week How many standard drinks containing alcohol do you have on a typical day: 3 or 4 How often do you have six or more drinks on one occasion: Never AUDIT-C Alcohol total score: 4 Non-prescribed substance use: denies use How often does anyone, including family, friends and others, physically hurt you: never How often does anyone, including family, friends and others, insult or talk down to you: never How often does anyone, including family, friends and others, threaten you with harm: never How often does anyone, including family, friends and others, scream or curse at you: never service: No Health Related Social Needs: food insecurity (Z59.41) and transportation insecurity (Z59.82) Exam Narrative: Exam Narrative: Constitutional: Well-developed, well-nourished, no acute distress. HEENT: Normocephalic, atraumatic. Neck: Normal range of motion. Nontender. Supple. Heart: Regular. No murmurs. Tachycardia. Intact distal pulses. Lungs: Clear to auscultation. No chest discomfort. No wheezes, rhonchi, or rales. Abdomen: Normal bowel sounds. Nontender. No rebound tenderness. Genitalia: Deferred. Back: No midline tenderness. Normal range of motion. Extremities: Normal range of motion. No injury. Skin: Intact. No rash. Warm. No erythema or pallor. Neurologic: No altered sensation. No weakness. Alert and oriented. Psychiatric: No suicidality. No anxiety or depression. No insomnia. Nursing notes and vitals signs are reviewed. Const: Vital Signs, click to edit/add: Vital Signs - 24 hr 05/30/25 23:05 Temperature 98.0 F Pulse Rate [Pulse Oximeter] 118 H Respiratory Rate 22 Blood Pressure [Ri ght Upper Arm] 137/115 H Pulse Oximetry 99 Oxygen Delivery Me thod Room Air Course Vital Signs Vital signs: Initial Vital Signs Temperature 98.0 F 05/30/25 23:05 Temperature Source Temporal Artery Scan 05/30/25 23:05 Pulse Rate 118 H 05/30/25 23:05 Respiratory Rate 22 05/30/25 23:05 Blood Pressure 137/115 H 05/30/25 23:05 Blood Pressure Mean 122 H 05/30/25 23:05 Blood Pressure Position Sitting 05/30/25 23:05 Pulse Oximetry 99 05/30/25 23:05 Oxygen Delivery Method Room Air 05/30/25 23:05 Vital Signs Temperature 98.0 F 05/30/25 23:05 Pulse Rate 118 H 05/30/25 23:05 Respiratory Rate 22 05/30/25 23:05 Blood Pressure 137/115 H 05/30/25 23:05 Pulse Oximetry 99 05/30/25 23:05 Oxygen Delivery Method Room Air 05/30/25 23:05 Temperature 98.0 F 05/30/25 23:05 Pulse Rate 118 H 05/30/25 23:05 Respiratory Rate 22 05/30/25 23:05 Blood Pressure 137/115 H 05/30/25 23:05 Pulse Oximetry 99 05/30/25 23:05 Oxygen Delivery Method Room Air 05/30/25 23:05 Medications Administered Medications: Generic Name Dose Route Start Last Admin Trade Name Freq PRN Reason Stop Dose Admin Sodium Chloride 1,000 mls @ 1,000 mls/hr 05/30/25 23:30 05/30/25 23:49 0.9 % Sodium Chloride 1000 Ml IV 05/31/25 00:29 Infused .Q1H JAVED Infusion Insulin Human Regular 10 unit 05/30/25 23:23 05/30/25 23:29 Insulin Regular, Human 100 Unit/Ml Vial IVP 05/30/25 23:24 10 unit ONCE ONE Administration Lorazepam 1 mg 05/30/25 23:23 05/30/25 23:29 Lorazepam 2 Mg/Ml Inj IV 05/30/25 23:24 1 mg ONCE ONE Administration Medical Decision Making MDM Narrative Medical decision making narrative: This person comes in feeling jittery in anxious and states that she has not had insulin for a couple days. Her glucose returns at 613. She did receive 10 units of regular insulin and recheck showed a glucose down to 495. Urine drug screen is positive for methamphetamines. Patient was a bit surprised to hear this thinking that she had taken cocaine. She did receive a mg of Ativan which helped her feel significantly better. Before discharge she also received another 10 units of regular insulin. She states that she will be able to get to her regular medications tomorrow. Her glucose certainly is not back down to normal range but she is not showing any signs of ketoacidosis or other complication. Lab Data Labs: Lab Results 05/30/25 Range/Units 23:10 WBC 8.20 (4.50-11.00) K/uL RBC 5.29 H (4.00-5.20) m/uL Hgb 16.8 H (12.0-16.0) gm/dL Hct 45.4 (33.0-51.0) % MCV 86 (80-100) fL MCH 32 (26-34) pg MCHC 37 H (32-36) gm/dL RDW Coeff of [place] 11.9 (11.5-15.5) % Plt Count 402 (140-440) K/uL Neut % (Auto) 63.4 (42.0-72.0) % Lymph % (Auto) 30.9 (20-44) % [place] % (Auto) 3.2 (0.0-11.0) % Eos % (Auto) 1.2 (0.0-7.0) % Baso % (Auto) 0.4 (0.0-3.0) % Neut # (Auto) 5.21 (1.7-7.0) K/uL Lymph # (Auto) 2.53 (0.90-2.90) K/uL [place] # (Auto) 0.30 (0.00-0.90) K/UL Eos # (Auto) 0.10 (0.00-0.50) K/uL Baso # (Auto) 0.03 (0.00-0.30) K/uL Abs Immat Gran (auto) 0.07 (0.00-0.30) K/uL Imm/Tot Granulo (auto) 0.9 % VBG pH 7.359 (7.32-7.43) VBG pCO2 44 (40-50) mmHG VBG pO2 < 30.1 (25-47) mmHG VBG HCO3 25 (21-28) mmol/L Sodium 129 L (135-149) mmol/L Potassium 4.7 (3.6-5.1) mmol/L Chloride 92 L (96-114) mmol/L Carbon Dioxide 24 (20-32) mmol/L Anion Gap 13 (7-15) mEq/L BUN 12 (5-24) mg/dL Creatinine 0.6 (0.5-1.5) mg/dL Estimated Creat Clear 113.18 Estimated GFR 114 ml/min Glucose 613 H* (60-115) mg/dL Lactate 3.1 H (0.5-1.9) mmol/L Calcium 9.7 (8.4-10.6) mg/dL Total Bilirubin 0.5 (0.1-1.5) mg/dL Direct Bilirubin 0.3 (0.0-0.5) mg/dL AST 28 (12-35) U/L ALT 22 (4-35) U/L Alkaline Phosphatase 81 (40-150) U/L Troponin I < 0.01 (0.01-0.04) ng/mL Total Protein 8.3 (6.0-8.3) g/dL Albumin 5.0 (3.3-5.0) g/dL Urine Color Yellow (Yellow) Urine Appearance Clear (Clear) Urine pH 6.0 (5.0-8.5) Ur Specific [place] <= 1.005 (1.000-1.030) Urine Protein Negative (Negative) Urine Glucose (UA) 2+ A (Negative) Urine Ketones 2+ A (Negative) Urine Blood Negative (Negative) Urine Nitrite Negative (Negative) Urine Bilirubin Negative (Negative) Urine Urobilinogen 0.2 (0.2-1.0) Ur Leukocyte Esterase Negative (Negative) Urine RBC 0-2 (0-2) Urine WBC 0-2 (0-5) Ur Squamous Epith Cells Few (None-Few) Urine Bacteria Moderate A (None) Urine Trichomonas Moderate A (None) Urine HCG, Qual Negative (Negative) Urine Opiates Screen Negative (Negative) Ur Oxycodone Screen Negative (Negative) Urine Methadone Screen Negative (Negative) Ur Barbiturates Screen Negative (Negative) U Tricyclic Antidepress Negative (Negative) Ur Phencyclidine Scrn Negative (Negative) Ur Amphetamines Screen POSITIVE A (Negative) U Methamphetamines Scrn POSITIVE A (Negative) U Benzodiazepines Scrn Negative (Negative) Urine Cocaine Screen Negative (Negative) U Marijuana (THC) Screen Negative (Negative) Ur Drug Screen Comment See Note ECG Data Attestation: I personally reviewed and interpreted this ECG as follows: Interpretation: Normal sinus rhythm. Rate is 99 beats per minute. There are no ST or T-wave abnormalities. Discharge Plan Discharge Clinical Impression: Hyperglycemia, Methamphetamine abuse Patient Disposition: Home w/ Parent or Adult Condition: Stable Additional Instructions: Resume insulin as prescribed. Follow up with MD for ongoing management. Return if worsening symptoms occur. Prescriptions: No Action magnesium oxide 400 mg (241.3 mg magnesium) tablet 400 mg PO BID 30 Days Qty: 60 0RF insulin aspart U-100 100 unit/mL (3 mL) insulin pen 16 unit subcut TIDWM 30 Days Qty: 45 1RF insulin glargine [Lantus Solostar U-100 Insulin] 100 unit/mL (3 mL) insulin pen 30 unit subcut BID 30 Days Qty: 54 1RF potassium chloride [Klor-Con M20] 20 mEq tablet,ER particles/crystals 20 meq PO DAILY Qty: 30 3RF albuterol sulfate 90 mcg/actuation aerosol powdr breath activated 2 inh inhalation Q6H PRNQty: 1 0RF Follow Up/Referrals: Provider,Not a Local [Primary Care Provider, Family Practice] Stand Alone Forms: MyHealth Info Instructions Procedures ABG Interpretation ABG Results: 05/30/25 23:10 VBG pH 7.359 VBG pCO2 44 VBG pO2 < 30.1 VBG HCO3 25
[2025-05-30 23:27] LABS: Cannabinoid Screen Urine Negative (Negative); Methamphetamines Screen Urine POSITIVE (Negative); Tricyclic Antidepressant Urine Negative (Negative)
[2025-05-30 23:29] LABS: Ur HCG Qualitative* Negative (Negative)
[2025-05-30] MEDS: INSULIN REGULAR, HUMAN 100 UNIT/ML VIAL 10 UNIT IVP ×2 (23:29→23:56)
[2025-05-30 23:31] VITALS: BP 117/87; PULSE 100; RESP 18; O2SAT 99
[2025-05-30 23:32] LABS: Albumin* 5.0 g/dL (3.3-5.0); Chloride* 92 mmol/L (96-114); Sodium* 129 mmol/L (135-149)
[2025-05-30 23:33] LABS: Potassium* 4.7 mmol/L (3.6-5.1)
[2025-05-30 23:35] LABS: Alanine Aminotransferase* 22 U/L (4-35); Alkaline Phosphatase* 81 U/L (40-150); Anion Gap 13 mEq/L (7-15); Aspartate Amino Transferase* 28 U/L (12-35); Bilirubin Direct* 0.3 mg/dL (0.0-0.5); Bilirubin Total* 0.5 mg/dL (0.1-1.5); Blood Urea Nitrogen* 12 mg/dL (5-24); Carbon Dioxide* 24 mmol/L (20-32); Creatinine* 0.6 mg/dL (0.5-1.5); Est. Creatinine Clearance* 113.18; Estimated Glomerular Filt Rate 114 ml/min; Total Protein* 8.3 g/dL (6.0-8.3)
[2025-05-30 23:36] LABS: Calcium* 9.7 mg/dL (8.4-10.6)
[2025-05-30 23:43] LABS: Glucose* 613 mg/dL (60-115)
[2025-05-30 23:57] LABS: Glucose, Point-of-Care* 495 mg/dl (60-115)
[2025-05-31 00:01] VITALS: BP 117/82; PULSE 95; RESP 18; O2SAT 99
[2025-05-31 00:50] LABS: Glucose, Point-of-Care* 323 mg/dl (60-115)
[2025-05-31 00:53] VITALS: BP 123/75; PULSE 94; RESP 18; TEMP 36.7; O2SAT 99
[2025-05-31 01:18] VITALS: BP 123/75; PULSE 94; RESP 18; TEMP 36.7
== END 2025-05-31 01:18 | disposition home or self-care (01) ==
PROVIDERS: Emergency Provider Emergency Medicine Emergency Medical Services
DX: E11.65 Type 2 diabetes mellitus with hyperglycemia (principal); F15.90 Other stimulant use, unspecified, uncomplicated; F17.210 Nicotine dependence, cigarettes, uncomplicated; Z79.4 Long term (current) use of insulin
CPT/HCPCS: 36415; 80048; 80076; 80306; 81001; 81025; 82803; 82947; 82962; 83605; 84484; 85025; 87086; 93005; 94761; 96374; 99284; 99285; J2060; J7030